=== PATIENT | female | born 1950 | race Caucasian/White ===

== ENCOUNTER 2019-10-13 08:03 | Outpatient (CLI) | payer OTHER, SELFPAY ==
--- NOTE | ~2019-10-13 | CT_ITS ---
EXAMINATION: CT lung screening DATE: 10/13/2019 10:02 INDICATION: Personal history of tobacco dependence, current smoker with 40 pack year history TECHNIQUE: Computed tomography (CT) of the chest was performed without intravenous contrast. The dose -length product (DLP) was 61.15 mGy-cm. Automated exposure control and iterative reconstruction techn Blendue were employed. COMPARISON: 10/21/2018 FINDINGS: There is severe emphysema. There is a 5 mm nodule in the medial aspect of the right lower l obe on image 59 which is new since the comparison examination. There is an unchanged small area of sc arring in the lingula. Previously described 1 to 2 mm nodule of the right upper lobe are unchanged an d most consistent with old granulomatous disease. There is no pleural effusion or pneumothorax. No pa thologically enlarged thoracic lymph nodes are identified. The heart size is normal. Stable fluid att enuation lesions of the liver measuring up to 1.2 cm are consistent with cysts. IMPRESSION: 1. Lung-RADS category 3: Probably benign. Followup with noncontrast low-dose chest CT in 6 months is recommended. Reviewed, dictated and finalized at location A. IMPRESSION: 1. Lung-RADS category 3: Probably benign. Followup with noncontrast low-dose ch est CT in 6 months is recommended.
[2019-10-13 09:00] VITALS: PULSE 60; O2SAT 95
[2019-10-13 09:05] VITALS: PULSE 100; O2SAT 85
[2019-10-13 09:08] VITALS: O2SAT 87
[2019-10-13 09:10] VITALS: O2SAT 90
[2019-10-13 09:20] VITALS: PULSE 69; O2SAT 94
--- NOTE | 2019-10-13 09:54 | HOMEO2EVAL ---
Home Oxygen Evaluation RC: Home Oxygen (O2) Evaluation Start: 10/13/19 09:49 Freq: Status: Active Protocol: RPE Activity Type Activity Date Activity User E-Sign Co-Sign Detail Recorded Client Recorded Date Recorded By Document 10/13/19 09:00 GEOVANNA [id number] 10/13/19 09:53 GEOVANNA Document 10/13/19 09:05 GEOVANNA [id number] 10/13/19 09:53 GEOVANNA Document 10/13/19 09:08 GEOVANNA [id number] 10/13/19 09:53 GEOVANNA Document 10/13/19 09:10 GEOVANNA [email or web address] 10/13/19 09:53 GEOVANNA Document 10/13/19 09:20 GEOVANNA [email or web address] 10/13/19 09:53 GEOVANNA 10/13/19 10/13/19 10/13/19 09:00 09:05 09:08 Home O2 Evaluation Test Phase Resting Exercise Exercise Oxygen Delivery Room Air Room Air Nasal Cannula Oxygen Flow Rate (L/min) 1 Pulse Oximetry (90-100 %) 95 85 L 87 L Pulse Rate (60-100 beats/min) 60 100 Activity Tolerance Fair Ambulation Distance (feet) 200 Home Oxygen Evaluation Comments Treatment Charges O2 Evaluation 10/13/19 10/13/19 09:10 09:20 Home O2 Evaluation Test Phase Exercise Resting Oxygen Delivery Nasal Cannula Room Air Oxygen Flow Rate (L/min) 2 Pulse Oximetry (90-100 %) 90 94 Pulse Rate (60-100 beats/min) 69 Activity Tolerance Ambulation Distance (feet) Home Oxygen Evaluation Comments PT REQUIRES 2L WITH ACTIVITY/ EXERTION Treatment Charges
--- NOTE | 2019-10-16 15:56 | WPDPFTINT ---
PFT Interpretation PFT Interpretation: DOS: 10/13/2019 REQUESTING: Dr Partida REASON FOR TESTING: Shortness of breath, tobacco dependence PULMONARY FUNCTION TESTS The test results are not reliable as the patient was not able to hold her breath long enough to complete DLCO. She was quite short of breath, although she did perform to the best of her ability. Spirometry: FEV1 is severely decreased 46%, 0.8 L. FVC is 75% predicted, 1.84 L , mildly reduced. FEV1% is reduced, consistent with airflow obstruction. There is no change with bronchodilator. Lung volumes: Severe increase in total lung capacity. TLC 167%, consistent with hyperinflation. Extremely severe increase in RV 305%. Increased airway resistance 828%. Diffusion: DLCO moderately decreased 45%. Flow volume loop: Scooping of the expiratory limb. IMPRESSION: Results are not reproducible however this test does confirm extremely severe obstructive ventilatory impairment, hyperinflation, air trapping, increased airway resistance and decreased diffusion. This is consistent with emphysema. Lack of response to bronchodilator should not preclude use if clinically indicated. Mami Partida MD
== END 2019-10-13 08:04 | disposition home or self-care (01) ==
PROVIDERS: PCP Family Medicine; Visit Provider Internal Medicine Critical Care Medicine
DX: J44.9 Chronic obstructive pulmonary disease, unspecified (principal); Z12.2 Encounter for screening for malignant neoplasm of respiratory organs; Z87.891 Personal history of nicotine dependence; R09.02 Hypoxemia
CPT/HCPCS: 94060; 94618; 94726; 94729; G0297

== ENCOUNTER → 2020-09-03 07:03 | Outpatient (CLI) | payer OTHER, SELFPAY ==
[2020-09-04 00:15] LABS: SARS-CoV-2 RNA PCR Negative
== END ==
PROVIDERS: PCP Family Medicine; Visit Provider Family Medicine
DX: Z01.812 Encounter for preprocedural laboratory examination (principal); Z20.822 Contact with and (suspected) exposure to COVID-19
CPT/HCPCS: C9803; U0003; U0005

== ENCOUNTER → 2020-09-24 06:55 | Outpatient (CLI) | payer OTHER, SELFPAY ==
[2020-09-24 22:40] LABS: SARS-CoV-2 RNA PCR Negative
== END ==
PROVIDERS: PCP Family Medicine; Visit Provider Family Medicine
DX: R68.89 Other general symptoms and signs (principal); Z20.822 Contact with and (suspected) exposure to COVID-19
CPT/HCPCS: C9803; U0003; U0005

== ENCOUNTER 2020-11-02 12:28 | Outpatient (CLI) | payer OTHER, SELFPAY ==
--- NOTE | ~2020-11-02 | CT_ITS ---
EXAMINATION:CT lung screening DATE: 11/02/2020 12:43 INDICATION: Personal history of tobacco dependence. Current smoker with 40 pack year history. TECHNIQUE: Computed tomography (CT) of the chest was performed without intravenous contrast. Automate d exposure control and iterative reconstruction technique were employed. The dose-length product (DLP ) was 57.59 mGy-cm. COMPARISON: Chest CT 10/13/2019 FINDINGS: There is severe emphysema. There is stable mild scarring at the lung apices. There is a 5 m m nodule in right lower lobe, new from 10/13/2019. There is a worsened 4 mm nodule in left upper lobe. There are multiple scattered stable pulmonary nodules measuring up to 4 mm. No pleural effusion. The heart size is normal. The central pulmonary arteries are enlarged, consistent with pulmonary arteria l hypertension. There are cysts in the liver measuring up to 1.5 cm. There is mild thoracic spondylos is. IMPRESSION: 1. Lung-RADS category 3: Probably benign. Further evaluation is recommended with noncontrast low-dose chest CT in 6 months. Reviewed, dictated and finalized at location B. IMPRESSION: 1. Lung-RADS category 3: Probably benign. Further evaluation is recommended wit h noncontrast low-dose chest CT in 6 months.
== END 2020-11-02 12:29 | disposition home or self-care (01) ==
PROVIDERS: PCP Family Medicine; Visit Provider Nurse Practitioner Family
DX: Z12.2 Encounter for screening for malignant neoplasm of respiratory organs (principal); Z87.891 Personal history of nicotine dependence
CPT/HCPCS: 71271

== ENCOUNTER → 2020-11-18 06:47 | Outpatient (CLI) | payer OTHER, SELFPAY ==
[2020-11-18 16:11] LABS: SARS-CoV-2 RNA PCR Negative
== END ==
PROVIDERS: PCP Family Medicine; Visit Provider Physician Assistant
DX: Z20.822 Contact with and (suspected) exposure to COVID-19 (principal)
CPT/HCPCS: C9803; U0003; U0005

== ENCOUNTER 2021-05-22 12:59 | Outpatient (CLI) | payer OTHER, SELFPAY ==
--- NOTE | ~2021-05-22 | CT_ITS ---
EXAMINATION:CT diagnostic chest wo con DATE: 05/22/2021 14:15 INDICATION: Solitary pulmonary nodule. TECHNIQUE: Computed tomography (CT) of the chest was performed without intravenous contrast. Automate d exposure control and iterative reconstruction technique were employed. The dose-length product (DLP ) was 58.01 mGy-cm. COMPARISON: Chest CT 11/02/2020, 10/13/2019 FINDINGS: There is mild scarring at the lung apices. There is severe emphysema. There is a new 12 mm nodule in left upper lobe. There is mild atelectasis in lingula without change. There is a 4 mm nodul e in right lower lobe with decrease in size from 5 mm. Again seen are 3 mm and 4 mm nodules in right lower lobe. No pleural effusion. The heart size is normal. No pericardial effusion. The main pulmonar y artery is enlarged, consistent with pulmonary arterial hypertension. There is a small sliding hiata l hernia. There are cysts in the liver measuring up to 1.4 cm. There is mild thoracic spondylosis. IMPRESSION: 1. New 12 mm nodule in left lung upper lobe, which may be infection or primary bronchogenic carcinoma . Noncontrast low-dose chest CT is recommended in 3 months. Given her home oxygen use, she would like ly not be a percutaneous biopsy candidate. Reviewed, dictated and finalized at location A. TRIC DETECTOR OPERATOR IMPRESSION: 1. New 12 mm nodule in left lung upper lobe, which may be infection or primary bronchogenic carcinoma. Noncontrast low-dose chest CT is recommended in 3 month s. Given her home oxygen use, she would likely not be a percutaneous biopsy can didate.
--- NOTE | 2021-05-22 13:10 | ECHO_ITS ---
Patient Info Name: Hazel Owens Age: 71 years : 1950 Gender: Female Ht: 60 in Wt: 110 lbs BSA: 1.46 m2 HR: 78 bpm BP: 131 / 65 mmHg Technical Quality: Fair Exam Date: 05/22/2021 1:33 PM Exam Location: [facility] Patient Status: Outpatient Admit Date: 05/22/2021 Staff Ordering Physician: Mami Partida MD Bellhop Captain: Joaquina Hunt RDCS Attending Provider: Mami Partida MD Referring Physician: Jaquan SHORE; Exam Type: CA echo doppler color flow Study Info Indications - pulmonary hypertension Complete two-dimensional, color flow and Doppler transthoracic echocardiogram is performed. Summary 1. Complete two-dimensional, color flow and Doppler transthoracic echocardiogram is performed. 2. Left ventricular chamber dimension is normal. 3. Left ventricular systolic function is normal, estimated at 65-70%. 4. The left ventricular diastolic function is grade I diastolic dysfunction. 5. E/e' 9 is minimally elevated. 6. There is mild mitral valve regurgitation. 7. There is trace tricuspid valve regurgitation. 8. Mild pulmonary hypertension, estimated pulmonary arterial systolic pressure is 45 mmHg. 9. There is trace pulmonic regurgitation. 10. Dilated inferior vena cava with >50% collapse upon inspiration consistent with elevated right atrial pressure, 10 mmHg. Left Ventricle E/e' 9 is minimally elevated. Left ventricular chamber dimension is normal. Left ventricular systolic function is normal, estimated at 65-70%. The left ventricular diastolic function is grade I diastolic dysfunction. Right Ventricle Right ventricular chamber dimension is normal. Right ventricular systolic function is normal. Left Atria Left atrial chamber dimension is normal. Right Atria Right atrial chamber dimension is normal. Aortic Valve The aortic valve is trileaflet. There is no aortic valve stenosis. There is no aortic valve regurgitation. Pulmonic Valve There is trace pulmonic regurgitation. Mitral Valve There is no mitral valve stenosis. There is mild mitral valve regurgitation. Tricuspid Valve There is trace tricuspid valve regurgitation. Mild pulmonary hypertension, estimated pulmonary arterial systolic pressure is 45 mmHg. Pericardium/Pleural There is no pericardial effusion. Inferior Vena Cava Dilated inferior vena cava with >50% collapse upon inspiration consistent with elevated right atrial pressure, 10 mmHg. Aorta The aortic root size at the sinus of Valsalva is normal. Left Ventricular Outflow Tract Name Value Normal LVOT 2D LVOT Diameter 2.0 cm LVOT Doppler LVOT Peak Gradient 5 mmHg LVOT Mean Gradient 3 mmHg LVOT VTI 22 cm LVOT VTI/AV VTI Ratio 0.9 LVOT Stroke Volume 70 ml LVOT CO 14.8 l/min LVOT CI 10.2 l/min/m2 Pulmonic Valve Name V
== END 2021-05-22 13:00 | disposition home or self-care (01) ==
PROVIDERS: PCP Family Medicine; Visit Provider Internal Medicine Critical Care Medicine
DX: R91.1 Solitary pulmonary nodule (principal); I27.20 Pulmonary hypertension, unspecified; I34.0 Nonrheumatic mitral (valve) insufficiency
CPT/HCPCS: 71250; 93306

== ENCOUNTER → 2021-07-18 11:08 | Outpatient (CLI) | payer OTHER, SELFPAY ==
--- NOTE | ~2021-07-18 | MM_ITS ---
EXAMINATION: MM screening [place] BI w yolanda HISTORY: Screening mammogram TECHNIQUE: Craniocaudal and mediolateral oblique 3-D tomosynthesis images were obtained and synthetic 2-D images were generated. CAD analysis was submitted and interpreted. COMPARISON: 05/07/2017 BREAST PARENCHYMAL COMPOSITION: There are scattered areas of fibroglandular density. FINDINGS: There is no evidence of suspicious mass, calcification, or architectural distortion to sugg est malignancy in either breast. There has been no suspicious interval change. IMPRESSION: 1. No mammographic evidence of malignancy. 2. Recommend routine screening mammography in one year. BI-RADS Category 1: Negative Reviewed, dictated and finalized at location A. LAYER
--- NOTE | ~2021-07-18 | DEXA_ITS ---
Bone Density Report Name: WILFRED ROBERTSON Age: 71 Sex: Female Ethnicity: White Date of : 1950 Indication: postmenopausal; screening for osteoporosis; asthma or emphysema; hysterectomy; Referring Provider: MATTHEW, JUAN [place] Study: Bone densitometry was performed. Exam Date: July 18, 2021 Accession number: [id number] Bone Density: Region BMD T-score Z-score Classification AP Spine (L1-L4) 0.812 -2.1 -0.1 Osteopenia Femoral Neck (Left) 0.455 -3.6 -1.8 Osteoporosis Total Hip (Left) 0.560 -3.1 -1.7 Osteoporosis Femoral Neck (Right) 0.413 -3.9 -2.2 Osteoporosis Total Hip (Right) 0.544 -3.3 -1.8 Osteoporosis Total Hip Mean 0.552 -3.2 -1.8 Osteoporosis World Health Organization criteria for BMD impression classify patients as: Normal (T-score at or above -1.0), Osteopenia (T-score between -1.0 and -2.5), or Osteoporosis (T-score at or below -2.5). 10-year Fracture Risk: FRAX not reported because: Some T-score for Spine Total or Hip Total or Femoral Neck at or below -2.5 Clinical Information Provided by Patient: Smokes Has used the following medications: Vitamin D Has the following medical conditions: Asthma or Emphysema, Hysterectomy Patient maximum height was 60.13 Menopause Age: 42 No regular weight bearing exercise Drinks caffeinated beverages Onset of menses at age 13 Number of children 2 Impression: The patient has osteoporosis, based on the Right Femoral Neck T-score. The patient has risk factors, including: smoking. Discussion: HIGH RISK OF FRACTURE. BONE DENSITY IS UNDESIRABLY LOW AT ONE OR MORE SKELETAL SITES, CONSISTENT WITH OSTEOPOROSIS. ALSO, BONE DENSITY IS LOWER THAN EXPECTED FOR AGE AND SEX AT ONE OR MORE SKELETAL SITES; RECOMMEND A DILIGENT SEARCH FOR SECONDARY CAUSES OF BONE LOSS. This patient's lowest T-score meets the World Health Organization's (WHO) criteria for osteoporosis at one or more sites (T-score -2.5 or below). In untreated patients, the risk of osteoporotic fracture increases approximately two-fold for each 1.0 SD decrease in T-score. Low bone density is not the only risk factor for fracture; also consider factors such as patient's age, frailty or poor health, risk of falling, risk of injury, previous osteoporotic fracture, family history of osteoporosis, cigarette smoking, low body weight, etc. Not everyone with low bone mineral density has osteoporosis; osteomalacia and other metabolic bone disorders should also be considered. Patients who have osteoporosis should be evaluated for specific diseases and conditions (secondary causes) that may cause or contribute to bone loss. The [place] [employer] Endocrinologists (AACE) and National Osteoporosis Foundation (NOF) recommend pharmacologic intervention for all postmenopausal women whose T-score is in this ra
== END ==
PROVIDERS: PCP Family Medicine; Visit Provider Physician Assistant
DX: Z12.31 Encounter for screening mammogram for malignant neoplasm of breast (principal); Z78.0 Asymptomatic menopausal state; M85.88 Other specified disorders of bone density and structure, other site; M81.0 Age-related osteoporosis without current pathological fracture
CPT/HCPCS: 77063; 77067; 77080

== ENCOUNTER 2021-08-24 13:34 | Outpatient (CLI) | payer OTHER, SELFPAY ==
--- NOTE | ~2021-08-24 | CT_ITS ---
EXAMINATION:CT diagnostic chest wo con DATE: 08/24/2021 13:52 INDICATION: Solitary pulmonary nodule. TECHNIQUE: Computed tomography (CT) of the chest was performed without intravenous contrast. Automate d exposure control and iterative reconstruction technique were employed. The dose-length product (DLP ) was 57.59 mGy-cm. COMPARISON: Chest CT 05/22/2021, 11/02/2020 FINDINGS: There is mild scarring at the lung apices. There is severe emphysema. There is an 8 mm nodu le in left upper lobe, decreased from 12 mm on 05/22/2021. There is mild atelectasis in lingula. Ther e are a few scattered nodules in the lungs measuring up to 5 mm without change. No pleural effusion. The heart size is normal. No pericardial effusion. There are no pathologically enlarged lymph nodes. The central pulmonary arteries are enlarged, consistent with pulmonary arterial hypertension. There a re cysts in the liver measuring up to 1.6 cm. There is mild thoracic spondylosis. IMPRESSION: 1. 8 mm nodule in left upper lobe with interval improvement, likely benign. 2. Severe emphysema. Reviewed, dictated and finalized at location A. NER MACHINE TENDER
== END 2021-08-24 13:35 | disposition home or self-care (01) ==
PROVIDERS: PCP Family Medicine; Visit Provider Physician Assistant
DX: R91.1 Solitary pulmonary nodule (principal); K76.89 Other specified diseases of liver; J43.9 Emphysema, unspecified; M47.814 Spondylosis without myelopathy or radiculopathy, thoracic region
CPT/HCPCS: 71250

== ENCOUNTER 2021-09-04 00:25 | Day surgery (SDC) | payer OTHER, SELFPAY ==
[2021-08-24 14:16] VITALS: BMI 40.0
--- NOTE | 2021-09-01 13:44 | PM.HPGS ---
History of Present Illness History of Present Illness Consent: Risks, benefits, and alternatives have been discussed and questions answered. Patient agrees to proceed with procedure. Chief complaint: hx of colon polyps Narrative: Hazel Owens is a 71 year old female referred for colon cancer screening. She had 5 tubular adenomas removed about 4 years ago Review of Systems Review of Systems: All systems reviewed & are unremarkable except as noted in HPI and below PMFSH Past Medical History Medical History Chronic respiratory failure with hypoxia Colon polyps COPD (chronic obstructive pulmonary disease) Hypoxemia Macular degeneration Raynaud disease Tobacco dependence Uterine fibroid Surgical History Surgical History S/P hysterectomy with oophorectomy Status post bilateral cataract extraction Family History Family History Father Diabetes mellitus Hypertension Malignant neoplasm of prostate Family history of malignant neoplasm of kidney Mother Diabetes mellitus Hypertension Family history of cardiovascular disease Social History Social History Social History: Smoking packs per day: 0.5 Smoking cigarettes per day: 10.0 Years smoked: 40 Smoking pack-years: 20.00 Smoking status: Current every day smoker Tobacco type: cigarettes Second hand tobacco smoke exposure: Yes Additional smoking assessment comments: still smoking also vaping Alcohol intake: never Substance use: never Substance use type: does not use Living arrangements: with family Gender identity (if verbalized by the patient): Female Sexual Orientation (if Verbalized by the Patient): Straight or Heterosexual Spiritual care concerns: No Meds Home Medications and Allergies Home Medications Medication Instructions Recorded Confirmed Type fluticasone fur. 100 mcg-umeclid 1 inhalation INHALATION DAILY #28 07/08/19 08/24/21 Rx 62.5 mcg-vilant 25 mcg each inhalat.powder albuterol sulfate 0.63 mg/3 mL 0.63 mg INHALATION Q6H 11/05/19 08/24/21 History solution for nebulization cholecalciferol (vitamin D3) 1,250 50,000 unit PO WEEKLY #12 cap 04/19/21 08/24/21 Rx mcg (50,000 unit) capsule alendronate 70 mg tablet 70 mg PO WEEKLY #14 tablet 07/24/21 08/24/21 Rx Allergies Allergy/AdvReac Type Severity Reaction Status Date / Time Androgenic Anabolic Steroid AdvReac Severe tremor Verified 09/04/21 08:15 Exam Resp: Auscultation: clear to auscultation bilaterally Cardio: Rate: regular rate Rhythm: regular rhythm GI: GI Palp: Yes Soft to palpation and No Tenderness to palpation present (GI) Assessment and Plan Assessment and plan (1) Screening for colon cancer: Code(s): Z12.11 - Encounter for screening for malignant neoplasm of colon Status: Acute Assessment and Plan: Colonoscopy with possible biopsy or polypectomy or cautery or injection of substances.
[2021-09-04 08:16] VITALS: BP 137/64; PULSE 109; RESP 18; TEMP 37.1; O2SAT 99; BMI 21.4
--- NOTE | 2021-09-04 08:26 | WPDANESEPPF ---
Anes - Initial Pre Proc Eval Procedure: Operation Date: 09/04/21 09:00 Proposed Procedures p Screening Colonoscopy - Wilner Espinal MD Date/Time: 09/04/21 08:26 Surgeon: Wilner Espinal MD Pre Op Diagnosis: hx of colon polyps Patient Data Age: 71 Gender: F Height: 1.52 m Weight: 49.8 kg Last Vital Signs Temp 37.1 C 09/04/21 08:16 Pulse 109 H 09/04/21 08:16 Resp 18 09/04/21 08:16 BP 137/64 09/04/21 08:16 Pulse Ox 99 09/04/21 08:16 Allergies Allergy/AdvReac Type Severity Reaction Status Date / Time Androgenic Anabolic Steroid AdvReac Severe tremor Verified 09/04/21 08:15 Home Medications Medication Instructions Recorded Confirmed Type fluticasone fur. 100 mcg-umeclid 1 inhalation INHALATION DAILY #28 07/08/19 08/24/21 Rx 62.5 mcg-vilant 25 mcg each inhalat.powder albuterol sulfate 0.63 mg/3 mL 0.63 mg INHALATION Q6H 11/05/19 08/24/21 History solution for nebulization cholecalciferol (vitamin D3) 1,250 50,000 unit PO WEEKLY #12 cap 04/19/21 08/24/21 Rx mcg (50,000 unit) capsule alendronate 70 mg tablet 70 mg PO WEEKLY #14 tablet 07/24/21 08/24/21 Rx Patient hx anesthesia problems: none Family hx anesthesia problems: none Results Review: All pre-operative results and documents have been reviewed as part of the pre-operative evaluation. [facility] Past Medical History Medical History Chronic respiratory failure with hypoxia Colon polyps COPD (chronic obstructive pulmonary disease) Hypoxemia Macular degeneration Raynaud disease Tobacco dependence Uterine fibroid Surgical History Surgical History S/P hysterectomy with oophorectomy Status post bilateral cataract extraction Family History Family History Father Diabetes mellitus Hypertension Malignant neoplasm of prostate Family history of malignant neoplasm of kidney Mother Diabetes mellitus Hypertension Family history of cardiovascular disease Social History Social History Social History: Smoking packs per day: 0.5 Smoking cigarettes per day: 10.0 Years smoked: 40 Smoking pack-years: 20.00 Smoking status: Current every day smoker Tobacco type: cigarettes Second hand tobacco smoke exposure: Yes Additional smoking assessment comments: still smoking also vaping Alcohol intake: never Substance use: never Substance use type: does not use Living arrangements: with family Gender identity (if verbalized by the patient): Female Sexual Orientation (if Verbalized by the Patient): Straight or Heterosexual Spiritual care concerns: No Anes - Eval Final PreProcedure Day of Procedure 09/04/21 08:26 Patient weight: normal Heart: regular rate and rhythm Lungs: clear to auscultation Airway: Mallampati scale class II Neurological: alert and oriented Last oral intake: >/= 8 hours ASA classification: III Emergent: no Anesthetic plan: proceed Anesthesia type and monitoring: general GIVS and standard monitoring Results Review: All pre-operative results and documents have been reviewed as part of the pre-operative evaluation. Informed Consent: The patient's anesthetic plan and its attendant risks and benefits were discussed with the patient/family/POA. Questions were solicited and answers provided to the satisfaction of the patient/family/POA.
[2021-09-04] MEDS: LACTATED RINGERS 1,000 ML 150 ML IV CONT (08:28)
[2021-09-04 09:29] VITALS: BP 105/49; PULSE 95; RESP 27; O2SAT 100
[2021-09-04 09:39] VITALS: BP 99/71; PULSE 76; RESP 27; O2SAT 100
[2021-09-04 09:49] VITALS: BP 100/78; PULSE 72; RESP 24; O2SAT 100
== END 2021-09-04 10:01 | disposition home or self-care (01) ==
PROVIDERS: PCP Family Medicine; Visit Provider Internal Medicine Gastroenterology
PROC: 0DJD8ZZ Inspection of Lower Intestinal Tract, Via Natural or Artificial Opening Endoscopic (ICD-10-PCS; CPT 45378; principal; 2021-09-04 09:00)
DX: Z12.11 Encounter for screening for malignant neoplasm of colon (principal); D12.0 Benign neoplasm of cecum; D12.4 Benign neoplasm of descending colon; D12.5 Benign neoplasm of sigmoid colon; K57.30 Diverticulosis of large intestine without perforation or abscess without bleeding; Z79.51 Long term (current) use of inhaled steroids; J44.9 Chronic obstructive pulmonary disease, unspecified; J96.11 Chronic respiratory failure with hypoxia; H35.30 Unspecified macular degeneration; I73.00 Raynaud's syndrome without gangrene; F17.210 Nicotine dependence, cigarettes, uncomplicated
CPT/HCPCS: 45385; 45380; 45381; 88305; J2001; J2704; J7120

== ENCOUNTER → 2022-04-17 10:57 | Outpatient (CLI) | payer OTHER, SELFPAY ==
--- NOTE | ~2022-04-17 | XR_ITS ---
EXAMINATION: HAND-STEFANIE ARTHRITIS 3+VIEWS DATE: 04/17/2022 11:17 INDICATION: Arthritis pain at the bilateral hands. TECHNIQUE: Posteroanterior, lateral, and oblique views of the left and of the right hands as well as a ballcatchers view of both hands were obtained. COMPARISON: None. FINDINGS: Bone alignment is normal at the bilateral hands. No fractures. Minimal to mild osteoarthritis at the bilateral triscaphe, first carpometacarpal and several interphalangeal joints characterized by nonuni form joint space narrowing and/or tiny marginal osteophytes. Subarticular cystic change at the distal pole of the left scaphoid. No erosions to suggest an inflammatory arthritis. Soft tissues are unrema rkable. IMPRESSION: 1. 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 No erosions to suggest inflam matory arthritis. Reviewed, dictated and finalized at location A. IMPRESSION: 1. 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 No eros ions to suggest inflammatory arthritis.
== END ==
PROVIDERS: PCP Family Medicine; Visit Provider Internal Medicine
DX: M19.041 Primary osteoarthritis, right hand (principal); M19.042 Primary osteoarthritis, left hand
CPT/HCPCS: 73130

== ENCOUNTER 2022-12-12 10:14 | Outpatient (CLI) | payer OTHER, SELFPAY ==
--- NOTE | ~2022-12-12 | CT_ITS ---
EXAMINATION: CT lung screening DATE: 12/12/2022 10:46 INDICATION: History of tobacco dependence. TECHNIQUE: Computed tomography (CT) of the chest was performed without intravenous contrast. The dose -length product was 61.91 mGy-cm. Automated exposure control and iterative reconstruction technique w ere employed. COMPARISON: Comparison to multiple prior studies sequentially, with oldest reviewed study dated 11/02. FINDINGS: Continued decrease in size of left upper lobe nodule measuring 9 x 7 mm compared with 10 x 8 mm on prior examination. There is severe emphysema. There is a new 7 mm right upper lobe nodule, im age 52. There are bullous changes in the left lower lobe. There are additional smaller bilateral pulm onary nodules measuring 3 mm or less. No acute osseous abnormality. No thoracic lymphadenopathy. No s ignificant pleural or pericardial effusion. There are small cysts of the liver. There is mild atheros clerosis of the aorta. IMPRESSION: 1. Lung Rads category 4A, suspicious recommends follow-up 3 month interval low dose CT chest. Alterna tively Pet/CT scan may be performed. Reviewed, dictated and finalized at location [] IMPRESSION: 1. Lung Rads category 4A, suspicious recommends follow-up 3 month interval low dose CT chest. Alternatively Pet/CT scan may be performed.
== END 2022-12-12 10:15 | disposition home or self-care (01) ==
PROVIDERS: PCP Family Medicine; Visit Provider Internal Medicine Critical Care Medicine
DX: Z12.2 Encounter for screening for malignant neoplasm of respiratory organs (principal); F17.210 Nicotine dependence, cigarettes, uncomplicated; R91.8 Other nonspecific abnormal finding of lung field
CPT/HCPCS: 71271

== ENCOUNTER 2023-01-03 08:51 | Outpatient (CLI) | payer OTHER, SELFPAY ==
--- NOTE | ~2023-01-03 | PE_ITS ---
EXAMINATION: PET skull to mid thigh DATE: 01/03/2023 11:18 INDICATION: Lung nodule TECHNIQUE: Blood glucose level was 110 mg/dL. 9.2 mCi of 18-fluorodeoxyglucose (18-FDG) was administe red i.v. Low dose computed tomography (CT) images were acquired from the base of the brain to the pro ximal thighs for attenuation correction and anatomic localization. Positron emission tomography (PET) images were acquired in the same distribution beginning 46 minutes after injection. The dose-length product (DLP) was 417.28 mGy-cm. COMPARISON: CT, 12/12/2022, 05/22/2021 FINDINGS: Head/neck: No abnormal FDG uptake is identified. Chest: There is severe emphysema. There is a 6 mm nodule of the right upper lobe with low-level FDG u ptake and SUV max of 1.7. There is an 8 mm nodule of the left lung apex with low level FDG uptake and SUV max of 1.5. There is mild atelectasis of the lingula. No pleural effusion or pneumothorax. No pa thologically enlarged thoracic lymph nodes are identified. The heart size is normal. Abdomen/pelvis/proximal thighs: Physiologic FDG activity is present in the bowel and urinary tract. N o abnormal FDG uptake is identified. There is a 2.1 cm cyst of the liver. The spleen, gallbladder, an d adrenal glands are normal. There is partial fatty replacement of the pancreas. No pathologically en larged abdominal or pelvic lymph nodes are identified. No free intraperitoneal gas or evidence of bow el obstruction. Colonic diverticulosis is present without evidence of diverticulitis. Musculoskeletal: No abnormal FDG uptake is identified. IMPRESSION: 1. 6 mm right upper lobe nodule with low-level FDG uptake concerning for primary bronchogenic carcino ma given detectable FDG uptake despite its small size. 2. Chronic left upper lobe nodule with low-level FDG uptake but decreased in size compared to prior e xaminations, likely benign. Reviewed, dictated and finalized at location L. IMPRESSION: 1. 6 mm right upper lobe nodule with low-level FDG uptake concerning for primar y bronchogenic carcinoma given detectable FDG uptake despite its small size. 2. Chronic left upper lobe nodule with low-level FDG uptake but decreased in si ze compared to prior examinations, likely benign.
[2023-01-03 09:41] LABS: Glucose Point of Care 110 mg/dl (65-105)
== END 2023-01-03 08:52 | disposition home or self-care (01) ==
PROVIDERS: PCP Family Medicine; Visit Provider Internal Medicine Critical Care Medicine
DX: R91.1 Solitary pulmonary nodule (principal)
CPT/HCPCS: 78815; A9552

== ENCOUNTER 2023-01-09 17:17 | Inpatient (IN) | payer OTHER, SELFPAY ==
[2023-01-09] VITALS (35 sets, daily range): BP systolic 101–165; BP diastolic 38–118; PULSE 63–131; RESP 14–33; TEMP 36.1–36.6; O2SAT 96–100; BMI 20.9
--- NOTE | ~2023-01-09 | XR_ITS ---
EXAMINATION: XR chest 2V Exam Date/Time: 01/09/2023 17:30 CDT HISTORY: SOB X 3 days, decreased strength, hx copd Comparison: 04/16/2017. RESULT: Lines, tubes, and devices: A stent or portion of a catheter projects over the upper abdomen in the l ateral view. Lungs and pleura: Diffuse reticular opacities. Hyperinflation. Lingular scar/atelectasis No focal co nsolidation, pneumothorax or pleural effusion. Cardiomediastinal silhouette: Stable. Other: No acute osseous or upper abdominal finding. IMPRESSION: Interstitial pulmonary edema. Emphysematous change. Reviewed, dictated and finalized at location K.
--- NOTE | 2023-01-09 17:21 | ECG_ITS ---
Measurements Intervals [place] Rate: 118 P: 76 CA: 112 QRS: 85 QRSD: 90 T: 48 QT: 307 QTc: 431 Interpretive Statements SINUS TACHYCARDIA WITH SHORT CA INTERVAL INCOMPLETE RIGHT BUNDLE BRANCH BLOCK NONSPECIFIC ST & T-WAVE ABNORMALITY- INFERIOR LEADS BASELINE ARTIFACT- I, II, III, AVR, AVL, AVF, V1-V6 ABNORMAL ECG NO PREVIOUS ECG AVAILABLE FOR COMPARISON Electronically Signed On 01-09-2023 21:00:27 CDT by José Miguel Sullivan D.O.
[2023-01-09 18:04] LABS: Basophils Percent Auto 0.4 % (0.2-1.2); Eosinophils Absolute Auto 0.1 K/mm3 (0-0.3); Eosinophils Percent Auto 1.1 % (0-4.4); Hematocrit 35.8 % (37.0-47.0); Hemoglobin 10.3 g/dL (12.0-15.0); Immature Granulocyte Absolute 0.03 K/mm3 (0.00-0.031); Immature Granulocyte Percent A 0.4 % (0-0.5); Lymphocytes Absolute Auto 2.01 K/mm3 (0.9-3.2); Lymphocytes Percent Auto 27.9 % (18.3-44.2); Mean Corpuscular HGB Conc 28.8 g/dl (32-36); Mean Corpuscular Hemoglobin 29.7 pg (26-34); Mean Corpuscular Volume 103.2 fl (80-100); Mean Platelet Volume 9.6 fl (7.4-10.4); Monocytes Absolute Auto 0.7 K/mm3 (0.1-0.6); Monocytes Percent Auto 9.4 % (2.6-8.5); Neutrophils Absolute Auto 4.4 K/mm3 (1.3-6.7); Neutrophils Percent Auto 60.8 % (45.5-73.1); Platelet Count Result 227 k/mm3 (150-375); Red Blood Count 3.47 M/mm3 (4.2-5.4); Red Cell Distribution Width 12.8 % (11.5-14.5); White Blood Count 7.2 K/mm3 (4.5-10.0)
[2023-01-09 18:17] LABS: Alanine Aminotransferase 20 U/L (6-35); Albumin Level 4.1 g/dL (3.5-5.1); Alkaline Phosphatase 54 U/L (38-126); Aspartate Amino Transferase 35 U/L (14-36); Bilirubin,Total 0.5 mg/dL (0.2-1.3); Blood Urea Nitrogen 25 mg/dL (7-17); Calcium 9.3 mg/dL (8.4-10.2); Carbon Dioxide > 40 mmol/L (22-30); Chloride 91 mmol/L (98-107); Estimated CRCL calculation 53 ml/min; Estimated Glomerular Filt Rate > 60; Glucose 130 mg/dL (65-110); Potassium 3.8 mmol/L (3.4-5.0); Sodium 142 mmol/L (137-145)
[2023-01-09 18:41] LABS: Hypochromasia 1+ (NORMAL); Platelet Estimate Adequate (Adequate); Schistocytes None Seen (NORMAL)
[2023-01-09] MEDS: LORazepam INJ (*CRX) 2 MG/ML VIAL 0.5 MG IV PUSH (19:33)
[2023-01-09 19:50] LABS: Appearance Urine Cloudy (Clear); Bacteria Urine Rare /hpf; Bilirubin Urine Negative (Negative); Blood Urine 2+ (Negative); Color Urine Yellow (Yellow); Glucose Urine UA Negative (Negative); Ketones Urine Negative (Negative); Leukocyte Esterase Ur Negative LEU/UL (Negative); Nitrate Urine Negative (Negative); Non Pathogenic Casts 0-2; Protein Urine 2+ mg/dL (Negative); RBC Urine 0-2 /hpf (0-2); Specific Grav Ur 1.011 (1.001-1.035); Squamous Epithelial Cell Urine Moderate /hpf (Few); Urobilinogen Urine 0.2 mg/dL (<2.0); WBC Urine 0-5 /hpf
--- NOTE | 2023-01-09 19:52 | ED.GENADULT ---
HPI - General Adult General Chief complaint: Shortness of Breath/Dyspnea Stated complaint: SOB Time Seen by Provider: 01/09/23 19:05 History of Present Illness HPI narrative: Patient is a 72-year-old female who presents to Emergency Department with a chief complaint of shortness of breath. Patient reports that she has history of COPD and reports that she still smokes a few cigarettes a day patient states that she been getting more more short of breath and also has noticed that she been little shaky. Patient reports she has had a nonproductive cough reports no prior history of cardiac disease reports no prior history of congestive heart failure. Related Data Allergies Allergy/AdvReac Type Severity Reaction Status Date / Time Androgenic Anabolic Steroid AdvReac Severe tremor Verified 01/09/23 17:23 Review of Systems Review of Systems: A 10 system review of systems was completed on the patient and is negative except for what is stated in the HPI. Nursing and ancillary documentation was reviewed. [facility] Past Medical History Medical History GLO positive Chronic respiratory failure with hypoxia Colon polyps COPD (chronic obstructive pulmonary disease) Emphysema lung Encounter for medication management Generalized osteoarthritis of multiple sites Hypoxemia Macular degeneration Pulmonary hypertension Pulmonary hypertension Raynaud disease Raynaud phenomenon Tobacco dependence Uterine fibroid Surgical History Surgical History S/P hysterectomy with oophorectomy Status post bilateral cataract extraction Family History Family History Father Diabetes mellitus Hypertension Malignant neoplasm of prostate Family history of malignant neoplasm of kidney Mother Diabetes mellitus Hypertension Family history of cardiovascular disease Social History Social History Social History: Smoking packs per day: 0.5 Smoking cigarettes per day: 10.0 Years smoked: 40 Smoking pack-years: 20.00 Smoking status: Current every day smoker Tobacco type: cigarettes Second hand tobacco smoke exposure: Yes Alcohol intake: never Substance use: never Substance use type: does not use Lack of Transportation: No Lack of Food: Never True Current Housing: I Have Housing Concerned About Future Housing: No Difficulty Paying Gas/Electric Bills: No Difficulty Paying for Meds: No Currently Unemployed: YES Education: Decline to Answer Difficulty w/ Childcare or Family Care: No Living arrangements: with family Occupation/Education: retired Gender identity (if verbalized by the patient): Female Sexual Orientation (if Verbalized by the Patient): Straight or Heterosexual Spiritual care concerns: No Exam Narrative: GENERAL: Thin-appearing, well-nourished, and in no acute distress. HEAD: Normocephalic, atraumatic. EYES: PERRLA and EOMI. ENT: Nares clear, no rhinorrhea or epistaxis. Mucous membranes moist. NECK: Supple. CHEST: Faint scattered wheezes to auscultation. No respiratory distress. HEART: Tachycardic rate and rhythm. No murmur heard. Normal peripheral pulses. ABDOMEN: Soft, nontender, nondistended, normal active bowel sounds. EXTREMITIES: Normal range of motion. No edema. SKIN: Warm, dry, no rash. NEURO: No focal deficits. Alert and oriented x3. PSYCH: Normal mood and affect. Course Vital Signs Vital signs: Vital Signs Temperature 36.6 C 01/09/23 17:15 Pulse Rate 125 H 01/09/23 17:15 Respiratory Rate 22 H 01/09/23 17:15 Blood Pressure 153/118 H 01/09/23 17:15 Oxygen Delivery Nasal Cannula 01/09/23 17:15 Oxygen Flow Rate 4 01/09/23 17:15 Temperature 36.6 C 01/09/23 17:15 Pulse Rate 105 H 01/09/23
[2023-01-09 19:55] LABS: Lactic Acid Reflex 1.2 mmol/L (0.7-2.0)
[2023-01-09 19:55] LABS: NT Pro B Type Natriuretic Pept 491 pg/mL (19.9-100); Troponin I 0.018 ng/mL (0.000-0.034)
[2023-01-09] MEDS: methylPREDNISolone SOD SUCC 125 MG VIAL IV PUSH (20:03)
[2023-01-09 20:05] LABS: Add Urine Microscopic? YES
[2023-01-09] MEDS: IPRATROPIUM BR 0.02% INH SOLN 0.5 MG/2.5 ML VIAL INHALATION (20:08)
[2023-01-09] MEDS: ALBUTEROL SULFATE NEB 2.5 MG/3 ML INH INHALATION (20:09)
[2023-01-09 20:13] LABS: Alveolar/Arterial O2 Gradient 20.4 mmHg; Base Excess ABG 15.3 mEq/l (+/-2.0); Fractional Inspired Oxygen 40 %; HCO3 ABG 45.4 mEq/l (22.0-26.0); Oxygen Content ABG 17.2 %vol (16.0-22.0); Oxygen Saturation ABG 98.8 % (95.0-100.0); Oxyhemoglobin 97.4 % THb (90.0-100.0); PO2 ABG 160.5 mmHg (80.0-100.0); PO2 FiO2 Ratio Arterial Blood 4.01 %; Total Hemoglobin 12.3 g/dL (12.0-18.0); pH ABG 7.317 (7.350-7.450)
[2023-01-09 20:15] LABS: Device NASAL CANNULA; Modified Allen's Test Pass; PCO2 ABG 90.7 mmHg (35.0-45.0); Site Drawn RIGHT RADIAL
[2023-01-09] MEDS: FUROSEMIDE INJ 40 MG/4 ML VIAL 20 MG IV PUSH (20:38)
--- NOTE | 2023-01-09 21:44 | ADMGEN ---
This patient, Hazel Owens, was admitted to IMU Room 212-01. Patient/family oriented to hospital policies and general routines including ID bracelet, bed and alarms, visiting hours, pain management, procedures, bathroom and other care routines, personal items, smoking policy, room service/diet, and visiting hours. Information on how to activate the Rapid Response Team has been discussed. Patient/Family are encouraged to report perceived risks to care and to ask questions if they do not understand what they are told or what they should do.
[2023-01-09 23:57] LABS: Troponin I 0.028 ng/mL (0.000-0.034)
[2023-01-10] VITALS (32 sets, daily range): BP systolic 114–142; BP diastolic 45–68; PULSE 65–117; RESP 18–22; TEMP 35.7–36.4; O2SAT 95–100; BMI 20.9
--- NOTE | 2023-01-10 | PM.IMHP ---
H&P: HPI History of Present Illness Date/Time: 01/09/23 23:00 Chief Complaint: Worsening shortness of breaths. Narrative: Patient is a 72-year-old female with a history of chronic active smoking, COPD who presents to Emergency Department with a chief complaint of shortness of breath.? Her the time of my evaluation, the patient is breathing on a CPAP machine. History is gathered from chart review and ED notes. Patient reports that she has history of COPD and reports that she still smokes a few cigarettes a day patient states that she been getting more more short of breath and also has noticed that she been little shaky.? Patient reports she has had a nonproductive cough reports no prior history of cardiac disease reports no prior history of congestive heart failure. Emergency department the patient had a temperature of 36.6? C, pulse rate 125, respiration 22, blood pressure 153/118, O2 saturation 98% on 4 L. her CBC shows a WBC of 7.2, hemoglobin 10.3, hematocrit 35.8 and platelet count to 2 7. A serum chemistry shows a sodium of 142, potassium 3.8, chloride 91, bicarbonate 40, BUN 25, creatinine 0.6 and glucose 130. AB.31/90.7/160/45/98. Urine is cloudy with 2+ protein 2+ blood negative L is 0-2 RBC, 0-5 WBC, rare bacteria. Chest x-ray reveals interstitial pulmonary edema. Emphysematous change. Patient was started on BiPAP with the following parameter: IPAP 14/EPAP 6/rate 18 with a FiO2 of 40%. The hospital medicine service was consulted duration and management. Patient is admitted as an inpatient to the IMU service. Review of Systems Review of Systems: A 10 system review of systems was completed on the patient and is negative except for what is stated in the HPI. Nursing and ancillary documentation was reviewed. [facility] Past Medical History Medical History GLO positive Chronic respiratory failure with hypoxia Colon polyps COPD (chronic obstructive pulmonary disease) Emphysema lung Encounter for medication management Generalized osteoarthritis of multiple sites Hypoxemia Macular degeneration Pulmonary hypertension Pulmonary hypertension Raynaud disease Raynaud phenomenon Tobacco dependence Uterine fibroid Surgical History Surgical History S/P hysterectomy with oophorectomy Status post bilateral cataract extraction Family History Family History Father Diabetes mellitus Hypertension Malignant neoplasm of prostate Family history of malignant neoplasm of kidney Mother Diabetes mellitus Hypertension Family history of cardiovascular disease Social History Social History Social History: Smoking packs per day: 0.5 Smoking cigarettes per day: 10.0 Years smoked: 40 Smoking pack-years: 20.00 Smoking status: Current every day smoker Tobacco type: cigarettes Second hand tobacco smoke exposure: Yes Additional smoking assessment comments: smokes 3 cigarettes Alcohol intake: never Substance use: never Substance use type: does not use Lack of Transportation: No Lack of Food: Never True Current Housing: I Have Housing Concerned About Future Housing: No Difficulty Paying Gas/Electric Bills: No Difficulty Paying for Meds: No Currently Unemployed: No Education: High School Diploma/GED Difficulty w/ Childcare or Family Care: No Living arrangements: with family Occupation/Education: retired Gender identity (if verbalized by the patient): Female Sexual Orientation (if Verbalized by the Patient): Straight or Heterosexual Spiritual care concerns: No Meds Home Medications and Allergies Home Medications Medication Instructions Recorded Confirmed Type levalbuterol HCl 1.25 mg/0.5 mL 1.25 mg (0.5 mL) inhalation BID 01/25/22 01/09/23 Rx solut
[2023-01-10] MEDS: ALBUTEROL SULFATE NEB 2.5 MG/3 ML INH INHALATION ×2 (02:59→07:50)
[2023-01-10] MEDS: IPRATROPIUM BR 0.02% INH SOLN 0.5 MG/2.5 ML VIAL INHALATION ×4 (02:59→20:47)
[2023-01-10 03:54] LABS: Troponin I 0.024 ng/mL (0.000-0.034)
[2023-01-10] MEDS: methylPREDNISolone SOD SUCC 125 MG VIAL 60 MG IV PUSH (05:39)
[2023-01-10 06:05] LABS: Blood Urea Nitrogen 21 mg/dL (7-17); Calcium 8.8 mg/dL (8.4-10.2); Carbon Dioxide > 40 mmol/L (22-30); Chloride 88 mmol/L (98-107); Estimated CRCL calculation 46 ml/min; Estimated Glomerular Filt Rate > 60; Glucose 165 mg/dL (65-110); Magnesium 1.8 mg/dL (1.6-2.3); Potassium 4.3 mmol/L (3.4-5.0); Sodium 141 mmol/L (137-145)
[2023-01-10 06:14] LABS: Alveolar/Arterial O2 Gradient 116.8 mmHg; Base Excess ABG 15.9 mEq/l (+/-2.0); Fractional Inspired Oxygen 40 %; HCO3 ABG 43.6 mEq/l (22.0-26.0); Oxygen Content ABG 16.3 %vol (16.0-22.0); Oxygen Saturation ABG 96.3 % (95.0-100.0); Oxyhemoglobin 95.9 % THb (90.0-100.0); PO2 ABG 87.2 mmHg (80.0-100.0); PO2 FiO2 Ratio Arterial Blood 2.18 %; pH ABG 7.409 (7.350-7.450)
[2023-01-10 06:18] LABS: Device BIPAP; Expiratory Pressure 6 cmH2O; Inspiratory Pressure 14 cmH2O; Modified Allen's Test Pass; Site Drawn RIGHT RADIAL
[2023-01-10 06:36] LABS: Basophils Percent Auto 0.4 % (0.2-1.2); Hematocrit 34.7 % (37.0-47.0); Hemoglobin 9.9 g/dL (12.0-15.0); Immature Granulocyte Absolute 0.02 K/mm3 (0.00-0.031); Immature Granulocyte Percent A 0.4 % (0-0.5); Lymphocytes Absolute Auto 0.37 K/mm3 (0.9-3.2); Lymphocytes Percent Auto 7.1 % (18.3-44.2); Mean Corpuscular HGB Conc 28.5 g/dl (32-36); Mean Corpuscular Hemoglobin 29.5 pg (26-34); Mean Corpuscular Volume 103.3 fl (80-100); Mean Platelet Volume 11.1 fl (7.4-10.4); Monocytes Absolute Auto 0.1 K/mm3 (0.1-0.6); Monocytes Percent Auto 1.5 % (2.6-8.5); Neutrophils Absolute Auto 4.8 K/mm3 (1.3-6.7); Neutrophils Percent Auto 90.6 % (45.5-73.1); Platelet Count Result 229 k/mm3 (150-375); Red Blood Count 3.36 M/mm3 (4.2-5.4); White Blood Count 5.2 K/mm3 (4.5-10.0)
--- NOTE | 2023-01-10 09:09 | PM.IMPN ---
Progress Note: A&P Assessment and Plan (1) Acute hypercapnic respiratory failure: Code(s): J96.02 - Acute respiratory failure with hypercapnia Status: Acute Assessment and Plan: Patient present with acute hypercapnic respiratory failure with a pCO2 above 90 days. She was started on noninvasive mechanical ventilation, patient need it during the night. Continue aggressive management with IV steroid, IV antibiotic, nebulization. Repeat ABG. Consult Pulmonary., patient advanced practice professional consultation, patient need noninvasive mechanical ventilation at discharge (2) Chronic respiratory failure: Qualifiers: Respiratory failure complication: hypoxia and hypercapnia Qualified Code(s): J96.11 - Chronic respiratory failure with hypoxia; J96.12 - Chronic respiratory failure with hypercapnia; J96.12 - Chronic respiratory failure with hypercapnia Code(s): J96.10 - Chronic respiratory failure, unspecified whether with hypoxia or hypercapnia Status: Acute Assessment and Plan: Patient is on chronic oxygen several relation at home 3 L per remitted. She had a chest CT from 2019 revealing severe emphysema. Unfortunately she continues to smoke. Pulmonary consult for further management. (3) Pulmonary hypertension: Code(s): I27.20 - Pulmonary hypertension, unspecified Status: Acute Assessment and Plan: Patient has documented mild pulmonary hypertension estimated pulmonary artery systolic pressure 45 mm of Hg as of May 22, 2021. (4) History of tobacco abuse: Code(s): Z87.891 - Personal history of nicotine dependence Status: Acute Assessment and Plan: Patient remains a chronic smoker half pack per daily visual plan to quit. Patient encouraged to stop smoking. Nicotine replacement therapy. Plan Patient is admitted as a new patient to service. Code status is full code. DVT prophylaxis with Lovenox Subjective Date/time seen: 01/10/23 09:09 Interval history: I saw exam patient today patient feels dyspnea is improving. When I saw the patient, patient was on nasal cannula. Patient denies chest pain, hypertension, abdomen pain, nausea vomiting diarrhea Exam Narrative: GENERAL: Thin-appearing, well-nourished, and in no acute distress. Patient is tremulous.. HEAD: Normocephalic, atraumatic. EYES: PERRLA and EOMI. ENT: Nares clear, no rhinorrhea or epistaxis. Mucous membranes moist. NECK: Supple. CHEST: Faint scattered wheezes to auscultation. Pulmonary: No respiratory distress, decreased air entry bilateral, patient is on nasal cannula HEART: Tachycardic rate and rhythm. No murmur heard. Normal peripheral pulses. ABDOMEN: Soft, nontender, nondistended, normal active bowel sounds. EXTREMITIES: Normal range of motion. No edema. SKIN: Warm, dry, no rash. NEURO: No focal deficits. Alert and oriented x3. PSYCH: Normal mood and affect. Objective Data Vital Signs Vital Signs: Vital Signs - 24 hr 01/09/23 17:15 01/09/23 17:23 01/09/23 17:25 Temperature 97.9 F Pulse Rate 125 H Respiratory Rate 22 H Blood Pressure 153/118 H 165/65 H Pulse Oximetry 98 Oxygen Delivery Nasal Cannula Nasal Cannula Oxygen Flow Rate 4 4 Fraction of Inspired Oxygen 01/09/23 20:09 01/09/23 20:18 01/09/23 20:46 Temperature Pulse Rate 102 H 105 H 102 H Respiratory Rate 20 22 H 28 H Blood Pressure Pulse Oximetry 98 Oxygen Delivery BiPAP Oxygen Flow Rate Fraction of Inspired Oxygen 01/09/23 17:38 01/09/23 17:44 01/09/23 17:45 Temperature Pulse Rate 115 H 124 H 124 H Respiratory Rate 21 H 18 33 H Blood Pressure 145/90 H Pulse Oximetry 100 Oxygen Delivery Oxygen Flow Rate Fraction of Inspired Oxygen 01/09/23 17:46 01/09/23 18:00 01/09/23 18:16 Temperature Pulse Rate 125 H 131 H 110 H Respiratory Rate 23 H 23 H 26 H Blood Pressure 152/80 H Pulse Oximetry 100 100 Oxygen Delivery Oxygen Flow Rate
--- NOTE | 2023-01-10 10:53 | ECHO_ITS ---
Patient Info Name: Hazel Owens Age: 72 years : 1950 Gender: Female Ht: 60 in Wt: 106 lbs BSA: 1.43 m2 HR: 105 bpm BP: 114 / 46 mmHg Heart Rhythm: Sinus Rhythm, Tachycardia Technical Quality: Fair Exam Date: 01/10/2023 1:04 PM Exam Location: [facility] Pulmonary Exam Room: [facility] Patient Status: Inpatient Admit Date: 01/09/2023 Staff Ordering Physician: Tyron Gaffney MD Technical Services Librarian: Joaquina Hunt RDCS Attending Provider: Michelle Chapman MD Referring Physician: Gulshan QUINTEROS; Exam Type: CA echo dop bubble study w con Study Info Indications - hypoxia assess for pfo Complete two-dimentional, color flow and Doppler transthoracic echocardiogram is performed with agitated saline and with contrast to opacify the left ventricle and to improve the delineation of the left ventricle endocardial borders. Contrast/Agitated Saline Contrast/Ag. Saline: Definity Amount: 2.00 ml Administered By: Jordyn Rausch RDCS Existing IV Access: Yes IV Access Condition: patent with no signs of infiltration Summary 1. Left ventricular chamber dimension is normal. 2. Left ventricular systolic function is hyperdynamic, estimated at >70%. 3. The left ventricular diastolic function is grade I diastolic dysfunction. 4. Right ventricular systolic function is normal. 5. Intact interatrial septum visualized by color flow imaging. Negative bubble study. 6. There is trace mitral valve regurgitation. 7. There is mild tricuspid valve regurgitation. 8. Normal inferior vena cava with >50% collapse upon inspiration consistent with normal right atrial pressure, 3 mmHg. 9. There is trivial pericardial effusion. Left Ventricle Left ventricular chamber dimension is normal. Left ventricular systolic function is hyperdynamic, estimated at >70%. There is no increased left ventricular wall thickness. The left ventricular diastolic function is grade I diastolic dysfunction. Right Ventricle Right ventricular chamber dimension is normal. Right ventricular systolic function is normal. Left Atria Left atrial chamber dimension is normal. Right Atria Right atrial chamber dimension is normal. Atrial Septum Intact interatrial septum visualized by color flow imaging. Negative bubble study. Aortic Valve The aortic valve is not well visualized. There is no aortic valve stenosis. There is no aortic valve regurgitation. Pulmonic Valve The pulmonic valve is not well visualized. Mitral Valve There is trace mitral valve regurgitation. The mitral valve annulus is mildly calcified. Tricuspid Valve There is mild tricuspid valve regurgitation. Pericardium/Pleural There is trivial pericardial effusion. Inferior Vena Cava Normal inferior vena cava with >50% collapse upon inspiration consistent with normal right atrial pressure, 3 mmHg. Aorta The aortic root size at the sinus of Valsalva is normal. Left Ventricular Outflow Tract Name Value Normal LVOT 2D LVOT Diameter 2.0 cm LVOT Doppler LVOT Peak Gradient 10 mmHg LVOT Mean Gradient 6 mmHg LVOT VTI 25 cm LVOT VTI/AV VTI Rat
[2023-01-10 11:24] LABS: Hypochromasia 1+ (NORMAL); Platelet Estimate Adequate (Adequate)
[2023-01-10 11:25] LABS: Basophilic Stippling 2+ (NORMAL); Schistocytes None Seen (NORMAL)
--- NOTE | 2023-01-10 12:50 | PM.CNPUL ---
Assessment and Plan Assessment and plan (1) Acute exacerbation of chronic obstructive airways disease: Code(s): J44.1 - Chronic obstructive pulmonary disease with (acute) exacerbation Status: Acute Assessment and Plan: Gold grade 3 group B COPD Patient with 20 pack year tobacco use, currently smoking, FEV1 0.80 L, 46% predicted with air trapping, hyperinflation and decreased DLCO when corrected for alveolar volume, CT scan of chest on 12/12/2022 with severe apical greater than basilar panlobular emphysema, echo on 05/22/2021 with a PASP of 45, chronic hypoxemic respiratory failure using 4 L nasal cannula at rest, with ambulation it sleep, chronic hypercarbic respiratory failure with serum bicarbonate on 04/27/2000 07/13/2035, 38 on 11/02/2022 and greater than 40 on this admission. Patient presents 01/09/23 now with an acute exacerbation of COPD with 3 days history of shortness of breath, cough, wheezing with no change in phlegm production. Patient had an ABG of 7.32/90/160 on 5 L. she was treated with BiPAP 05/12 with a repeat blood gas of 7.41/70/87. 01/10/23: She says that she is overall improved and ready to come off the BiPAP and was placed on 4 L nasal cannula later in the day with saturations 100%. Her white blood cell count is 5.2, creatinine is 0.7, bicarb is greater than 40. She has no wheezing on exam. Plan: I will decrease her Solu-Medrol to 60 mg IV q.6. I will increase the frequency her of her ipratropium and levalbuterol nebulizers from Q 6 to q.[address] the patient on azithromycin 500 mg p.o. q.day for tracheobronchitis. Patient will wear her BiPAP p.r.n. for comfort and at night. Continue supplemental oxygen to maintain saturations 90-94%. I will obtain an echocardiogram to assess her LV function, valvular function and PA pressures. Discussed with doctor Watts, will follow with you. (2) Respiratory failure with hypoxia and hypercapnia: Code(s): J96.91 - Respiratory failure, unspecified with hypoxia; J96.92 - Respiratory failure, unspecified with hypercapnia Status: Acute Assessment and Plan: Patient with severe COPD and chronic hypoxemic respiratory failure using 4 L nasal cannula at rest, with ambulation it sleep, chronic hypercarbic respiratory failure with serum bicarbonate on 04/27/2000 07/13/2035, 38 on 11/02/2022 and greater than 40 on this admission. Patient had an ABG of 7.32/90/160 on 5 L. she was treated with BiPAP 14/6 with a repeat blood gas of 7.41/70/87. The patient has severe COPD with chronic hypercarbic respiratory failure and would benefit from noninvasive ventilation to prevent further deterioration and to prevent for subsequent hospitalizations. 01/10: Patient is currently wearing BiPAP set rate 18 14/6 with tidal volumes 277 and she states that this is uncomfortable for her. The air as to quick and she could not sleep with this. I changed her to noninvasive ventilator with the AVAPS mode and adjusted settings to comfort with a rate of 14, tidal volume 450, EPAP 5, minimal inspiratory pressure 6, maximal inspiratory pressure 25, inspiratory time 1.0 seconds, rise of 4 and 32% FiO2 and she said that this was much more comfortable. I will obtain overnight oximetry and a blood gas prior to removal of these settings. I will initiate the process for a home noninvasive ventilator through her [employer] and her insurance essence. History of Present Illness History of Present Illness Consult date: 01/10/23 Chief complaint: Acute Hypercapnic Resp Failure/COPD Exacerbation Narrative: 01/10/2023: This is a new pulmonary consult for COPD exacerbation with hypoxemic and hypercarbic respiratory failure. 72-year-old with a history of COPD, positive in a GLO and Raynaud's without SLE, pulmonary hypertension, hypoxemic respiratory failure was followed in the Pulmonary Clinic. Patient was last seen on 11/28/2022 and the patient was maintained on trilogy 100, was treate
[2023-01-10] MEDS: PERFLUTREN LIPID MICROSPHERES 1.5 ML VIAL DILUTED TO 10 ML TOTAL VOLUME IV PUSH (13:20)
[2023-01-10] MEDS: methylPREDNISolone SOD SUCC 40 MG VIAL 20 MG IV PUSH ×3 (13:51→23:10)
[2023-01-10] MEDS: LEVALBUTEROL NEB 1.25 MG/3 ML INHALATION ×2 (14:47→20:47)
[2023-01-10] MEDS: AZITHROMYCIN 250 MG TABLET 500 MG PO (16:39)
[2023-01-11] VITALS (23 sets, daily range): BP systolic 117–155; BP diastolic 55–67; PULSE 61–121; RESP 16–24; TEMP 36.2–37.1; O2SAT 92–100
--- NOTE | 2023-01-11 07:01 | PC.NURSE ---
Paper documentation exists on this patient due to [facility] downtime on 01/11/23 from to [0700] .
[2023-01-11] MEDS: IPRATROPIUM BR 0.02% INH SOLN 0.5 MG/2.5 ML VIAL INHALATION ×4 (07:41→21:14)
[2023-01-11] MEDS: LEVALBUTEROL NEB 1.25 MG/3 ML INHALATION (07:41)
[2023-01-11] MEDS: AZITHROMYCIN 250 MG TABLET 500 MG PO (09:21)
[2023-01-11 11:15] LABS: pH ABG 7.482 (7.350-7.450)
[2023-01-11 11:16] LABS: Alveolar/Arterial O2 Gradient 79.1 mmHg; HCO3 ABG 44.2 mEq/l (22.0-26.0); PO2 ABG 78.4 mmHg (80.0-100.0); Total Hemoglobin 10.9 g/dL (12.0-18.0)
[2023-01-11 11:17] LABS: Carboxyhemoglobin 0.6 % THb (0-2.0); Methemoglobin ABG 0.3 %THb (0-1.5); Oxygen Content ABG 14.6 %vol (16.0-22.0); Oxyhemoglobin 94.6 % THb (90.0-100.0); Reduced Hemoglobin 4.5 %THb (0-5.0)
[2023-01-11 11:18] LABS: Fractional Inspired Oxygen 32 %; PO2 FiO2 Ratio Arterial Blood 2.45 %
[2023-01-11 11:19] LABS: PCO2 ABG 60.4 mmHg (35.0-45.0)
--- NOTE | 2023-01-11 11:19 | PM.IMPN ---
Progress Note: A&P Assessment and Plan (1) Acute hypercapnic respiratory failure: Code(s): J96.02 - Acute respiratory failure with hypercapnia Status: Acute Assessment and Plan: Patient present with acute hypercapnic respiratory failure with a pCO2 above 90 days. She was started on noninvasive mechanical ventilation, patient need it during the night. Continue aggressive management with IV steroid, IV antibiotic, nebulization. Repeat ABG. Consult Pulmonary., patient brand leader consultation, patient needs noninvasive mechanical ventilation at discharge Discontinue the Wellbutrin because of worsening hand tremor (2) Chronic respiratory failure: Qualifiers: Respiratory failure complication: hypoxia and hypercapnia Qualified Code(s): J96.11 - Chronic respiratory failure with hypoxia; J96.12 - Chronic respiratory failure with hypercapnia; J96.12 - Chronic respiratory failure with hypercapnia Code(s): J96.10 - Chronic respiratory failure, unspecified whether with hypoxia or hypercapnia Status: Acute Assessment and Plan: Patient is on chronic oxygen several relation at home 3 L per remitted. She had a chest CT from 2019 revealing severe emphysema. Unfortunately she continues to smoke. Pulmonary consult for further management. (3) Acute exacerbation of chronic obstructive airways disease: Code(s): J44.1 - Chronic obstructive pulmonary disease with (acute) exacerbation Status: Acute Assessment and Plan: Appreciate pulmonary consultation Per brand leader, Solu-Medrol 20 IV q.6 changed to prednisone 40 q.day, day 3 of steroids. levalbuterol nebulizers discontinued as patient has severe shaking and tremors.? Continue ipratropium 0.5 mg nebulized q.4 hours.? Continue azithromycin 500 mg p.o. q.day, day 2.? She reportedly has on 4 L nasal cannula at home but currently she is saturating well on 2 L nasal cannula with a goal saturation 90-94%. (4) Pulmonary hypertension: Code(s): I27.20 - Pulmonary hypertension, unspecified Status: Acute Assessment and Plan: Patient has documented mild pulmonary hypertension estimated pulmonary artery systolic pressure 45 mm of Hg as of May 22, 2021. (5) History of tobacco abuse: Code(s): Z87.891 - Personal history of nicotine dependence Status: Acute Assessment and Plan: Patient remains a chronic smoker half pack per daily visual plan to quit. Patient encouraged to stop smoking. Nicotine replacement therapy. (6) Respiratory failure with hypoxia and hypercapnia: Code(s): J96.91 - Respiratory failure, unspecified with hypoxia; J96.92 - Respiratory failure, unspecified with hypercapnia Status: Acute (7) Essential tremor: Code(s): G25.0 - Essential tremor Status: Acute Assessment and Plan: Worse in the central tremor, likely secondary to bronchodilators, discussed the case with Pulmonary, discontinue Xopenex Also consult neurologist for evaluation treatment Plan Patient is admitted as a new patient to service. Code status is full code. DVT prophylaxis with Lovenox Subjective Date/time seen: 01/11/23 11:19 Interval history: I saw exam patient today patient feels dyspnea is improving. When I saw the patient, patient was on nasal cannula. Patient denies chest pain, hypertension, abdomen pain, nausea vomiting diarrhea Exam Narrative: GENERAL: Thin-appearing, well-nourished, and in no acute distress. Patient is tremulous.. HEAD: Normocephalic, atraumatic. EYES: PERRLA and EOMI. ENT: Nares clear, no rhinorrhea or epistaxis. Mucous membranes moist. NECK: Supple. CHEST: Faint scattered wheezes to auscultation. Pulmonary: No respiratory distress, decreased air entry bilateral, patient is on nasal cannula HEART: Tachycardic rate and rhythm. No murmur heard. Normal peripheral pulses. ABDOMEN: Soft, nontender, nondistended, normal active bowel sounds. EXTREMITIES:
[2023-01-11 11:20] LABS: Non-Invasive Vent Rate 14 /MIN
[2023-01-11 11:22] LABS: Device NON-INVASIVE VENT
--- NOTE | 2023-01-11 11:58 | PCCCNOTE ---
On 01/11/23, the student, [Alia Messer], provided care and completed [facility] documentation on this patient. I have reviewed the student's documentation and agree with the findings.
--- NOTE | 2023-01-11 12:04 | PM.PNPUL ---
Progress Note: A&P Assessment and Plan (1) Acute exacerbation of chronic obstructive airways disease: Code(s): J44.1 - Chronic obstructive pulmonary disease with (acute) exacerbation Status: Acute Assessment and Plan: Gold grade 3 group B COPD Patient with 20 pack year tobacco use, currently smoking, FEV1 0.80 L, 46% predicted with air trapping, hyperinflation and decreased DLCO when corrected for alveolar volume, CT scan of chest on 12/12/2022 with severe apical greater than basilar panlobular emphysema, echo on 05/22/2021 with a PASP of 45, chronic hypoxemic respiratory failure using 4 L nasal cannula at rest, with ambulation it sleep, chronic hypercarbic respiratory failure with serum bicarbonate on 04/27/2000 07/13/2035, 38 on 11/02/2022 and greater than 40 on this admission. Patient presents 01/09/23 now with an acute exacerbation of COPD with 3 days history of shortness of breath, cough, wheezing with no change in phlegm production. Patient had an ABG of 7.32/90/160 on 5 L. she was treated with BiPAP 05/12 with a repeat blood gas of 7.41/70/87. 01/10/23: She says that she is overall improved and ready to come off the BiPAP and was placed on 4 L nasal cannula later in the day with saturations 100%. Her white blood cell count is 5.2, creatinine is 0.7, bicarb is greater than 40. She has no wheezing on exam. Plan: I will decrease her Solu-Medrol to 60 mg IV q.6. I will increase the frequency her of her ipratropium and levalbuterol nebulizers from Q 6 to q.[address] the patient on azithromycin 500 mg p.o. q.day for tracheobronchitis. Patient will wear her BiPAP p.r.n. for comfort and at night. Continue supplemental oxygen to maintain saturations 90-94%. I will obtain an echocardiogram to assess her LV function, valvular function and PA pressures. 01/11: Patient states she is breathing back to her baseline. She is now able to expectorate which is an improvement for her. She is currently on 4 L nasal with saturations 99% and I decreased her to 2 L and her saturations remain 96%. Plan: Solu-Medrol 20 IV q.6 changed to prednisone 40 q.day, day 3 of steroids. levalbuterol nebulizers discontinued as patient has severe shaking and tremors. Continue ipratropium 0.5 mg nebulized q.4 hours. Continue azithromycin 500 mg p.o. q.day, day 2. She reportedly has on 4 L nasal cannula at home but currently she is saturating well on 2 L nasal cannula with a goal saturation 90-94%. Discussed with Dr. Watts, will follow with you. (2) Respiratory failure with hypoxia and hypercapnia: Code(s): J96.91 - Respiratory failure, unspecified with hypoxia; J96.92 - Respiratory failure, unspecified with hypercapnia Status: Acute Assessment and Plan: Patient with severe COPD and chronic hypoxemic respiratory failure using 4 L nasal cannula at rest, with ambulation it sleep, chronic hypercarbic respiratory failure with serum bicarbonate on 04/27/2000 07/13/2035, 38 on 11/02/2022 and greater than 40 on this admission. Patient had an ABG of 7.32/90/160 on 5 L. she was treated with BiPAP 14/6 with a repeat blood gas of 7.41/70/87. The patient has severe COPD with chronic hypercarbic respiratory failure and would benefit from noninvasive ventilation to prevent further deterioration and to prevent for subsequent hospitalizations. 01/10: Patient is currently wearing BiPAP set rate 18 14/6 with tidal volumes 277 and she states that this is uncomfortable for her. The air as to quick and she could not sleep with this. I changed her to noninvasive ventilator with the AVAPS mode and adjusted settings to comfort with a rate of 14, tidal volume 450, EPAP 5, minimal inspiratory pressure 6, maximal inspiratory pressure 25, inspiratory time 1.0 seconds, rise of 4 and 32% FiO2 and she said that this was much more comfortable. I will obtain overnight oximetry and a blood gas prior to removal of these settings. I will initiate the process for a home n
[2023-01-11] MEDS: predniSONE 20 MG TABLET 40 MG PO (12:06)
--- NOTE | 2023-01-11 12:10 | WPDNEURCNPN ---
Assessment and Plan Assessment and plan (1) Acute exacerbation of chronic obstructive airways disease: Code(s): J44.1 - Chronic obstructive pulmonary disease with (acute) exacerbation Status: Acute (2) Tremors of nervous system: Code(s): R25.1 - Tremor, unspecified Status: Acute Plan 1. His urological tremors with the hint of underlying essential tremor could have been aggravated by the ongoing treatment for the emphysema. Will re-examine her tomorrow before considering any specific treatment and discuss further Consult date: 01/11/23 HPI: Hazel Owens is a 72 year old female admitted to the hospital for the complaints of shortness of breath in addition to the history of underlying COPD although she still smokes few cigarettes per day and has been getting more short of breath gradually in addition she has been somewhat she, she does have ongoing history of 1. Chronic respiratory failure with hypoxia and COPD with emphysema 2. Generalized osteoarthritis 3. Macular degeneration 4. Pulmonary hypertension 5. Tobacco dependence and 6. Raynaud disease. she has history of years smoked 40 with smoking pack years 20 and currently being everyday smoker. There is no history of alcohol intake, her initial exam in the emergency room documented her to be in no acute distress, with faint wheezing, but no gross neurological deficit, her vital signs with blood pressure of 153/118 and respiration rate of 22 with pulse of 125, her initial evaluation revealed CO2 greater than 40 BNP 491 some interstitial edema on chest x-ray he was given steroids intravenously, neuro consult has been obtained because of the gross tremors and present treatment does not include any kind of medications for the tremor. [facility] Past Medical History Medical History GLO positive Chronic respiratory failure with hypoxia Colon polyps COPD (chronic obstructive pulmonary disease) Emphysema lung Encounter for medication management Generalized osteoarthritis of multiple sites Hypoxemia Macular degeneration Pulmonary hypertension Pulmonary hypertension Raynaud disease Raynaud phenomenon Tobacco dependence Uterine fibroid Surgical History Surgical History S/P hysterectomy with oophorectomy Status post bilateral cataract extraction Family History Family History Father Diabetes mellitus Hypertension Malignant neoplasm of prostate Family history of malignant neoplasm of kidney Mother Diabetes mellitus Hypertension Family history of cardiovascular disease Social History Social History Social History: Smoking packs per day: 0.5 Smoking cigarettes per day: 10.0 Years smoked: 40 Smoking pack-years: 20.00 Smoking status: Current every day smoker Tobacco type: cigarettes Second hand tobacco smoke exposure: Yes Additional smoking assessment comments: smokes 3 cigarettes Alcohol intake: never Substance use: never Substance use type: does not use Lack of Transportation: No Lack of Food: Never True Current Housing: I Have Housing Concerned About Future Housing: No Difficulty Paying Gas/Electric Bills: No Difficulty Paying for Meds: No Currently Unemployed: No Education: High School Diploma/GED Difficulty w/ Childcare or Family Care: No Living arrangements: with family Occupation/Education: retired Gender identity (if verbalized by the patient): Female Sexual Orientation (if Verbalized by the Patient): Straight or Heterosexual Spiritual care concerns: No Meds Home Medications and Allergies Home Medications Medication Instructions Recorded Confirmed Type levalbuterol HCl 1.25 mg/0.5 mL 1.25 mg (0.5 mL) inhalation BID 01/25/22 01/09/23 Rx solution for nebulization PRN shor
--- NOTE | 2023-01-11 14:38 | PCOTNOTE ---
Attempted to see pt. for occupational therapy evaluation. Nursing requested waiting of evaluation due to pt's recent sharp increase in HR with PT evaluation. Following.
[2023-01-11] MEDS: HEPARIN SODIUM 5,000 UNITS/ML VIAL 5000 UNITS SUB-Q ×2 (15:51→22:36)
--- NOTE | 2023-01-11 15:51 | PCRCNOTE ---
PATIENT HAS ORDERS SIGNED AND AWAITING APPROVAL FROM INSURANCE AND [facility] FOR HOME ASTRAL UNIT SET UP. ([facility] EM[facility] DOESNT PROVIDE TRILOGY UNITS) [facility] AND SHE WILL SET UP ONCE APPROVED, SHE WILL ALSO CALL DR TONEY WHEN READY SET UP. ORDER IS SCANNED INTO CHART
--- NOTE | 2023-01-11 16:13 | PCPTNOTE ---
On 01/11/23, the student, ELDER Chaidez, provided care and completed [facility] documentation on this patient. I have reviewed the student's documentation and agree with the findings.
--- NOTE | 2023-01-11 18:33 | PC.NURSE ---
This patient, Hazel Owens, was transferred to [ 312] on 01/11/23 at 1810 Personal belongings sent with patient. Report given to [Nita HDZ ]. Appropriate documentation sent with patient.
[2023-01-12] VITALS (21 sets, daily range): BP systolic 112–136; BP diastolic 73–96; PULSE 61–105; RESP 14–18; TEMP 36.3–37.1; O2SAT 93–99
[2023-01-12] MEDS: IPRATROPIUM BR 0.02% INH SOLN 0.5 MG/2.5 ML VIAL INHALATION ×6 (01:26→20:48)
[2023-01-12] MEDS: HEPARIN SODIUM 5,000 UNITS/ML VIAL 5000 UNITS SUB-Q ×2 (05:15→21:12)
[2023-01-12] MEDS: AZITHROMYCIN 250 MG TABLET 500 MG PO (08:48)
[2023-01-12] MEDS: predniSONE 20 MG TABLET 40 MG PO (08:48)
--- NOTE | 2023-01-12 12:32 | WPDNEUROPN ---
Subjective Date/time seen: 01/12/23 12:32 Interval history: 72 years old with history of chronic obstructive pulmonary disease and intermittent acute of tremors,on medications accordingly but has access [place] of the physiological tremors though not suggestive of underlying Parkinson's disease will try the low dosage of the primidone that is 25 mg b.i.d. discussed with her in front of her family members. Exam Narrative: [age] years old with history of COPD with intermittent acute exacerbation of physiological tremor without evidence of any resting tremors definitely looks better today but family and also patient herself would like to try some medication I ordered primidone 25 mg b.i.d. for a trial. Objective Data Vital Signs Vital Signs: Vital Signs - 24 hr 01/11/23 12:57 01/11/23 13:10 01/11/23 13:28 Temperature Pulse Rate 121 H 117 H Respiratory Rate 20 20 Blood Pressure Pulse Oximetry Oxygen Delivery Nasal Cannula Oxygen Flow Rate 2 Fraction of Inspired Oxygen 01/11/23 15:16 01/11/23 15:24 01/11/23 16:26 Temperature 37.1 C Pulse Rate 101 H 109 H 81 Respiratory Rate 20 20 21 H Blood Pressure 155/63 H Pulse Oximetry 97 Oxygen Delivery Oxygen Flow Rate Fraction of Inspired Oxygen 01/11/23 16:00 01/11/23 18:28 01/11/23 21:19 Temperature 36.9 C Pulse Rate 104 H 105 H 83 Respiratory Rate 16 16 Blood Pressure 133/67 Pulse Oximetry 98 Oxygen Delivery Oxygen Flow Rate Fraction of Inspired Oxygen 01/11/23 21:21 01/11/23 21:24 01/11/23 21:44 Temperature 36.3 C L Pulse Rate 83 94 100 Respiratory Rate 16 16 22 H Blood Pressure 150/59 H Pulse Oximetry 92 100 Oxygen Delivery Nasal Cannula Oxygen Flow Rate 3 Fraction of Inspired Oxygen 01/12/23 01:27 01/11/23 23:00 01/11/23 20:00 Temperature Pulse Rate 61 83 106 H Respiratory Rate 17 24 H Blood Pressure Pulse Oximetry 92 Oxygen Delivery BiPAP Oxygen Flow Rate Fraction of Inspired Oxygen 01/11/23 20:00 01/12/23 00:00 01/12/23 04:00 Temperature Pulse Rate 61 105 H 62 Respiratory Rate 17 Blood Pressure Pulse Oximetry 93 Oxygen Delivery BiPAP Oxygen Flow Rate Fraction of Inspired Oxygen 01/12/23 05:39 01/12/23 08:23 01/12/23 08:24 Temperature Pulse Rate 61 86 Respiratory Rate 14 18 Blood Pressure Pulse Oximetry 98 93 Oxygen Delivery BiPAP Nasal Cannula Oxygen Flow Rate 2 Fraction of Inspired Oxygen 28 01/12/23 08:32 01/12/23 08:00 01/12/23 08:00 Temperature Pulse Rate 88 82 Respiratory Rate 18 Blood Pressure Pulse Oximetry 95 Oxygen Delivery Nasal Cannula Oxygen Flow Rate 2 Fraction of Inspired Oxygen 01/12/23 09:43 01/12/23 12:02 Temperature Pulse Rate 92 Respiratory Rate 16 Blood Pressure Pulse Oximetry 96 Oxygen Delivery Nasal Cannula Oxygen Flow Rate 1 Fraction of Inspired Oxygen Intake/Output Intake/Output: Intake & Output 01/09/23 01/10/23 01/11/23 01/12/23 23:59 23:59 23:59 23:59 Intake Total 1080 1220 950 Output Total 1000 1125 0 Balance 80 95 950 Meds/Results Medications: Active Medications Generic Name Dose Route Start Last Admin Trade Name Freq PRN Reason Stop Dose Admin Acetaminophen 650 mg 01/09/23 20:31 Acetaminophen 325 Mg Tablet PO Q4H PRN Mild Pain (1-3) or Fever Azithromycin 500 mg 01/10/23 14:35 01/12/23 08:48 Azithromycin 250 Mg Tablet PO 500 mg DAILY [facility] Administration Ergocalciferol 50,000 units 01/14/23 09:00 Ergocalciferol 50,000 Units Capsule PO Mo@0900 [facility] Heparin Sodium (Porcine) 5,000 units 01/10/23 22:00 01/12/23 05:15 Heparin Sodium 5,000 Units/Ml Vial SUB-Q 5,000 units Q8HR WIN[facility]RED Administration Ipratropium [place] 0.5 mg 01/11/23 12:00 01/12/23 12:02 Ipratropium Br 0.02% Inh Soln 0.5 Mg/2.5 Ml Vial INHALATION 0.5 mg Q4HRT [facility] Administratio
--- NOTE | 2023-01-12 12:53 | PM.PNPUL ---
Progress Note: A&P Assessment and Plan (1) Acute exacerbation of chronic obstructive airways disease: Code(s): J44.1 - Chronic obstructive pulmonary disease with (acute) exacerbation Status: Acute Assessment and Plan: Gold grade 3 group B COPD Patient with 20 pack year tobacco use, currently smoking, FEV1 0.80 L, 46% predicted with air trapping, hyperinflation and decreased DLCO when corrected for alveolar volume, CT scan of chest on 12/12/2022 with severe apical greater than basilar panlobular emphysema, echo on 05/22/2021 with a PASP of 45, chronic hypoxemic respiratory failure using 4 L nasal cannula at rest, with ambulation it sleep, chronic hypercarbic respiratory failure with serum bicarbonate on 04/27/2000 07/13/2035, 38 on 11/02/2022 and greater than 40 on this admission. Patient presents 01/09/23 now with an acute exacerbation of COPD with 3 days history of shortness of breath, cough, wheezing with no change in phlegm production. Patient had an ABG of 7.32/90/160 on 5 L. she was treated with BiPAP 05/12 with a repeat blood gas of 7.41/70/87. 01/10/23: She says that she is overall improved and ready to come off the BiPAP and was placed on 4 L nasal cannula later in the day with saturations 100%. Her white blood cell count is 5.2, creatinine is 0.7, bicarb is greater than 40. She has no wheezing on exam. Plan: I will decrease her Solu-Medrol to 60 mg IV q.6. I will increase the frequency her of her ipratropium and levalbuterol nebulizers from Q 6 to q.[address] the patient on azithromycin 500 mg p.o. q.day for tracheobronchitis. Patient will wear her BiPAP p.r.n. for comfort and at night. Continue supplemental oxygen to maintain saturations 90-94%. I will obtain an echocardiogram to assess her LV function, valvular function and PA pressures. 01/11: Patient states she is breathing back to her baseline. She is now able to expectorate which is an improvement for her. She is currently on 4 L nasal with saturations 99% and I decreased her to 2 L and her saturations remain 96%. Plan: Solu-Medrol 20 IV q.6 changed to prednisone 40 q.day, day 3 of steroids. levalbuterol nebulizers discontinued as patient has severe shaking and tremors. Continue ipratropium 0.5 mg nebulized q.4 hours. Continue azithromycin 500 mg p.o. q.day, day 2. She reportedly has on 4 L nasal cannula at home but currently she is saturating well on 2 L nasal cannula with a goal saturation 90-94%. 01/12: Patient states her breathing is better. She has no shortness of breath at rest but does have dyspnea on exertion. She did sleep last night with the hospital noninvasive ventilator. Off the levalbuterol she says her tremors persist but are improved. She has no wheezing on exam. Currently she is on 1 L nasal cannula with saturations 97%. Plan: prednisone 40 q.day, day 4 of steroids. levalbuterol nebulizers discontinued 721 in no clinical change and tremors have improved. Change ipratropium 0.5 mg nebulized q.4 hours nebs to q.4 hours while awake.. Continue azithromycin 500 mg p.o. q.day, day 3. She reportedly has on 4 L nasal cannula at home but currently she is saturating well on 1L nasal cannula with a goal saturation 90-94%. Discussed with Dr. Watts, will follow with you. (2) Respiratory failure with hypoxia and hypercapnia: Code(s): J96.91 - Respiratory failure, unspecified with hypoxia; J96.92 - Respiratory failure, unspecified with hypercapnia Status: Acute Assessment and Plan: Patient with severe COPD and chronic hypoxemic respiratory failure using 4 L nasal cannula at rest, with ambulation it sleep, chronic hypercarbic respiratory failure with serum bicarbonate on 04/27/2000 07/13/2035, 38 on 11/02/2022 and greater than 40 on this admission. Patient had an ABG of 7.32/90/160 on 5 L. she was treated with BiPAP 05/12 with a repeat blood gas of 7.41/70/87. The patient has severe COPD with chronic hypercarbic respiratory failu
--- NOTE | 2023-01-12 15:00 | PM.IMPN ---
Progress Note: A&P Assessment and Plan (1) Acute hypercapnic respiratory failure: Code(s): J96.02 - Acute respiratory failure with hypercapnia Status: Acute Assessment and Plan: Patient present with acute hypercapnic respiratory failure with a pCO2 above 90 days. She was started on noninvasive mechanical ventilation, patient need it during the night. Continue aggressive management with IV steroid, IV antibiotic, nebulization. Repeat ABG. Consult Pulmonary., patient lead ruby on rails developer consultation, patient needs noninvasive mechanical ventilation at discharge Discontinue the Wellbutrin because of worsening hand tremor (2) Chronic respiratory failure: Qualifiers: Respiratory failure complication: hypoxia and hypercapnia Qualified Code(s): J96.11 - Chronic respiratory failure with hypoxia; J96.12 - Chronic respiratory failure with hypercapnia; J96.12 - Chronic respiratory failure with hypercapnia Code(s): J96.10 - Chronic respiratory failure, unspecified whether with hypoxia or hypercapnia Status: Acute Assessment and Plan: Patient is on chronic oxygen several relation at home 3 L per remitted. She had a chest CT from 2019 revealing severe emphysema. Unfortunately she continues to smoke. Pulmonary consult for further management. (3) Acute exacerbation of chronic obstructive airways disease: Code(s): J44.1 - Chronic obstructive pulmonary disease with (acute) exacerbation Status: Acute Assessment and Plan: Appreciate pulmonary consultation Per lead ruby on rails developer, Received solu-Medrol 20 IV q.6 changed to prednisone 40 q.day, day 3 of steroids. levalbuterol nebulizers discontinued as patient has severe shaking and tremors.? Continue ipratropium 0.5 mg nebulized q.4 hours.? Continue azithromycin 500 mg p.o. q.day, day 2.? She reportedly has on 4 L nasal cannula at home but currently she is saturating well on 2 L nasal cannula with a goal saturation 90-94%. (4) Pulmonary hypertension: Code(s): I27.20 - Pulmonary hypertension, unspecified Status: Acute Assessment and Plan: Patient has documented mild pulmonary hypertension estimated pulmonary artery systolic pressure 45 mm of Hg as of May 22, 2021. (5) History of tobacco abuse: Code(s): Z87.891 - Personal history of nicotine dependence Status: Acute Assessment and Plan: Patient remains a chronic smoker half pack per daily visual plan to quit. Patient encouraged to stop smoking. Nicotine replacement therapy. (6) Respiratory failure with hypoxia and hypercapnia: Code(s): J96.91 - Respiratory failure, unspecified with hypoxia; J96.92 - Respiratory failure, unspecified with hypercapnia Status: Acute (7) Essential tremor: Code(s): G25.0 - Essential tremor Status: Acute Assessment and Plan: Worse in the central tremor, likely secondary to bronchodilators, discussed the case with Pulmonary, discontinue Xopenex Also consult neurologist for evaluation treatment, neurologist considers not Parkinson disease, recommend start primidone 25 mg b.i.d. p.o. Plan Patient is admitted as a new patient to service. Code status is full code. DVT prophylaxis with Lovenox Subjective Date/time seen: 01/12/23 15:00 Interval history: I saw exam patient today. Patient has no new issue events over the night.. Patient toleratese hospital noninvasive ventilator.? Patient is on nasal cannula Exam Narrative: GENERAL: Thin-appearing, well-nourished, and in no acute distress. Patient is tremulous.. HEAD: Normocephalic, atraumatic. EYES: PERRLA and EOMI. ENT: Nares clear, no rhinorrhea or epistaxis. Mucous membranes moist. NECK: Supple. CHEST: Faint scattered wheezes to auscultation. Pulmonary: No respiratory distress, decreased air entry bilateral, patient is on nasal cannula HEART: Tachycardic rate and rhythm. No murmur heard. Normal peripheral pulses. ABDOMEN: Soft, nont
[2023-01-12] MEDS: PRIMIDONE 25 MG TABLET PO (16:08)
[2023-01-13] VITALS (25 sets, daily range): BP systolic 125–140; BP diastolic 53–58; PULSE 66–129; RESP 15–22; TEMP 36.1–37.4; O2SAT 85–100
[2023-01-13] MEDS: predniSONE 20 MG TABLET 40 MG PO (08:23)
[2023-01-13] MEDS: PRIMIDONE 25 MG TABLET PO ×2 (08:23→16:58)
[2023-01-13] MEDS: AZITHROMYCIN 250 MG TABLET 500 MG PO (08:23)
[2023-01-13] MEDS: IPRATROPIUM BR 0.02% INH SOLN 0.5 MG/2.5 ML VIAL INHALATION ×4 (08:26→19:34)
--- NOTE | 2023-01-13 08:34 | PM.IMPN ---
Progress Note: A&P Assessment and Plan (1) Acute hypercapnic respiratory failure: Code(s): J96.02 - Acute respiratory failure with hypercapnia Status: Acute Assessment and Plan: Patient present with acute hypercapnic respiratory failure with a pCO2 above 90 days. She was started on noninvasive mechanical ventilation, patient need it during the night. Continue aggressive management with IV steroid, IV antibiotic, nebulization. Repeat ABG. Consult Pulmonary., patient inside sales specialist consultation, patient needs noninvasive mechanical ventilation at discharge Discontinue the Wellbutrin because of worsening hand tremor (2) Chronic respiratory failure: Qualifiers: Respiratory failure complication: hypoxia and hypercapnia Qualified Code(s): J96.11 - Chronic respiratory failure with hypoxia; J96.12 - Chronic respiratory failure with hypercapnia; J96.12 - Chronic respiratory failure with hypercapnia Code(s): J96.10 - Chronic respiratory failure, unspecified whether with hypoxia or hypercapnia Status: Acute Assessment and Plan: Patient is on chronic oxygen several relation at home 3 L per remitted. She had a chest CT from 2019 revealing severe emphysema. Unfortunately she continues to smoke. Pulmonary consult for further management. (3) Acute exacerbation of chronic obstructive airways disease: Code(s): J44.1 - Chronic obstructive pulmonary disease with (acute) exacerbation Status: Acute Assessment and Plan: Appreciate pulmonary consultation Per inside sales specialist, Received solu-Medrol 20 IV q.6 changed to prednisone . levalbuterol nebulizers discontinued as patient has severe shaking and tremors.? Continue ipratropium 0.5 mg nebulized q.4 hours.? Continue azithromycin 500 mg p.o. q.till tomorrow , dc steroid today She reportedly has on 4 L nasal cannula at home but currently she is saturating well on 2 L nasal cannula with a goal saturation 90-94%. AVAPS? is approved (4) Pulmonary hypertension: Code(s): I27.20 - Pulmonary hypertension, unspecified Status: Acute Assessment and Plan: Patient has documented mild pulmonary hypertension estimated pulmonary artery systolic pressure 45 mm of Hg as of May 22, 2021. (5) History of tobacco abuse: Code(s): Z87.891 - Personal history of nicotine dependence Status: Acute Assessment and Plan: Patient remains a chronic smoker half pack per daily visual plan to quit. Patient encouraged to stop smoking. Nicotine replacement therapy. (6) Respiratory failure with hypoxia and hypercapnia: Code(s): J96.91 - Respiratory failure, unspecified with hypoxia; J96.92 - Respiratory failure, unspecified with hypercapnia Status: Acute (7) Essential tremor: Code(s): G25.0 - Essential tremor Status: Acute Assessment and Plan: Worse in the central tremor, likely secondary to bronchodilators, discussed the case with Pulmonary, discontinue Xopenex Also consult neurologist for evaluation treatment, neurologist considers not Parkinson disease, recommend start primidone 25 mg b.i.d. p.o. tremor is better controlled Plan Patient is admitted as a new patient to service. Code status is full code. DVT prophylaxis with Lovenox patient is ready to be discharged today. the RNs and spiritual care coordinator of working on discharge Subjective Date/time seen: 01/13/23 08:34 Interval history: I saw exam patient today. Patient has no new issue events over the night.. Patient toleratese hospital noninvasive ventilator.? Patient is on nasal cannula, tremor is better controlled, patient is afebrile, hemodynamically stable, Exam Narrative: GENERAL: Thin-appearing, well-nourished, and in no acute distress. Patient is tremulous.. HEAD: Normocephalic, atraumatic. EYES: PERRLA and EOMI. ENT: Nares clear, no rhinorrhea or epistaxis. Mucous membranes moist. NECK: Supple. CHEST: no wheezes to auscu
--- NOTE | 2023-01-13 09:06 | PM.PNPUL ---
Progress Note: A&P Assessment and Plan (1) Acute exacerbation of chronic obstructive airways disease: Code(s): J44.1 - Chronic obstructive pulmonary disease with (acute) exacerbation Status: Acute Assessment and Plan: Gold grade 3 group B COPD Patient with 20 pack year tobacco use, currently smoking, FEV1 0.80 L, 46% predicted with air trapping, hyperinflation and decreased DLCO when corrected for alveolar volume, CT scan of chest on 12/12/2022 with severe apical greater than basilar panlobular emphysema, echo on 05/22/2021 with a PASP of 45, chronic hypoxemic respiratory failure using 4 L nasal cannula at rest, with ambulation it sleep, chronic hypercarbic respiratory failure with serum bicarbonate on 04/27/2000 07/13/2035, 38 on 11/02/2022 and greater than 40 on this admission. Patient presents 01/09/23 now with an acute exacerbation of COPD with 3 days history of shortness of breath, cough, wheezing with no change in phlegm production. Patient had an ABG of 7.32/90/160 on 5 L. she was treated with BiPAP 05/12 with a repeat blood gas of 7.41/70/87. 01/10/23: She says that she is overall improved and ready to come off the BiPAP and was placed on 4 L nasal cannula later in the day with saturations 100%. Her white blood cell count is 5.2, creatinine is 0.7, bicarb is greater than 40. She has no wheezing on exam. Plan: I will decrease her Solu-Medrol to 60 mg IV q.6. I will increase the frequency her of her ipratropium and levalbuterol nebulizers from Q 6 to q.[address] the patient on azithromycin 500 mg p.o. q.day for tracheobronchitis. Patient will wear her BiPAP p.r.n. for comfort and at night. Continue supplemental oxygen to maintain saturations 90-94%. I will obtain an echocardiogram to assess her LV function, valvular function and PA pressures. 01/11: Patient states she is breathing back to her baseline. She is now able to expectorate which is an improvement for her. She is currently on 4 L nasal with saturations 99% and I decreased her to 2 L and her saturations remain 96%. Plan: Solu-Medrol 20 IV q.6 changed to prednisone 40 q.day, day 3 of steroids. levalbuterol nebulizers discontinued as patient has severe shaking and tremors. Continue ipratropium 0.5 mg nebulized q.4 hours. Continue azithromycin 500 mg p.o. q.day, day 2. She reportedly has on 4 L nasal cannula at home but currently she is saturating well on 2 L nasal cannula with a goal saturation 90-94%. 01/12: Patient states her breathing is better. She has no shortness of breath at rest but does have dyspnea on exertion. She did sleep last night with the hospital noninvasive ventilator. Off the levalbuterol she says her tremors persist but are improved. She has no wheezing on exam. Currently she is on 1 L nasal cannula with saturations 97%. Plan: prednisone 40 q.day, day 4 of steroids. levalbuterol nebulizers discontinued 721 in no clinical change and tremors have improved. Change ipratropium 0.5 mg nebulized q.4 hours nebs to q.4 hours while awake.. Continue azithromycin 500 mg p.o. q.day, day 3. She reportedly has on 4 L nasal cannula at home but currently she is saturating well on 1L nasal cannula with a goal saturation 90-94%. 01/13: Patient states that she continues to improve. She had a hard time adjusting the hospital noninvasive ventilator last night but did sleep with the machine on. She denies wheezing. Her tremor is better on the perimeter down 25 b.i.d.. I was informed yesterday late in the day by Matias that her home machine is approved and they will attempt to set this up later today. Patient is currently on 2 L nasal cannula saturations 94%. Today is day 5 of steroids and I will discontinue. From a pulmonary perspective patient is ready to be discharged on these pulmonary medications: Trelegy 100-60 2.5-25 at 1 puff q.day Levalbuterol HFA inhaler 2 puffs Q 6 hours p.r.n. shortness of breath or wheezing Azithromycin 250 mg PO Q day X
--- NOTE | 2023-01-13 11:43 | HOMEO2EVAL ---
Evaluation was performed at [facility] Home Oxygen Evaluation RC: Home Oxygen (O2) Evaluation Start: 01/13/23 07:55 Freq: ONCE Status: Active Protocol: RPE Activity Type Activity Date Activity User E-sign Co-sign Detail Recorded Client Recorded Date Recorded By Document 01/13/23 11:15 MDW [email or web address] 01/13/23 11:42 MDW Document 01/13/23 11:16 MDW [email or web address] 01/13/23 11:42 MDW Document 01/13/23 11:17 MDW [email or web address] 01/13/23 11:42 MDW Document 01/13/23 11:17 MDW [email or web address] 01/13/23 11:42 MDW Document 01/13/23 11:41 MDW [email or web address] 01/13/23 11:42 MDW 01/13/23 01/13/23 01/13/23 11:15 11:16 11:17 Home O2 Evaluation [Oxygen] -Test Phase Resting Exercise Resting -Oxygen Delivery Nasal Cannula Nasal Cannula Nasal Cannula -Oxygen Flow Rate (L/min) 1 1 2 -Fraction of Inspired Oxygen (%) 24 24 28 [Pulse Oximetry] -Pulse Oximetry (90-100 %) 92 85 L 93 [Pulse Rate] -Pulse Rate (60-100 beats/min) 103 H 115 H 119 H [Evaluation] -Activity Tolerance Fair Fair -Rating of Perceived Dyspnea (PD) +1 Mild, +3 Moderate Noticeable to Difficulty, But the Participant Can Continue but Not to an Observer -Rate of Perceived Exertion (PE) 6 Very, very 13 Somewhat Query Text:Click the Protocol Button light Hard to View the RPE Scale [Exercise] -Ambulation Distance (feet) 20 -Ambulation Distance (meters) 6.09 [Comments] -Home Oxygen Evaluation Comments Due to low SPO2 increased Flow to 2L [Charges] -Treatment Charges O2 Evaluation - Inpatient 01/13/23 01/13/23 11:17 11:41 Home O2 Evaluation [Oxygen] -Test Phase Exercise Exercise -Oxygen Delivery Nasal Cannula Nasal Cannula -Oxygen Flow Rate (L/min) 2 3 -Fraction of Inspired Oxygen (%) 28 32 [Pulse Oximetry] -Pulse Oximetry (90-100 %) 86 L 94 [Pulse Rate] -Pulse Rate (60-100 beats/min) 129 H 125 H [Evaluation] -Activity Tolerance Fair Fair -Rating of Perceived Dyspnea (PD) +3 Moderate +3 Moderate Difficulty, But Difficulty, But Can Continue Can Continue -Rate of Perceived Exertion (PE) 13 Somewhat 11 Fairly light Query Text:Click the Protocol Button Hard to View the RPE Scale [Exercise] -Ambulation Distance (feet) 40 60 -Ambulation Distance (meters) 12.19 18.28 [Comments] -Home Oxygen Evaluation Comments Increased to 3L due to low SPO2 with activity. [Charges] -Treatment Charges
--- NOTE | 2023-01-13 11:44 | PCRCNOTE ---
Patient requires 1L at rest and 3L with activity for home evaluation.
--- NOTE | 2023-01-13 16:52 | WPDNEUROPN ---
Subjective Date/time seen: 01/13/23 16:52 Interval history: responded to the primidone 25 mg b.i.d. for the tremor extremely happy will recheck subsequently in the meantime no adjustment further adjust Objective Data Vital Signs Vital Signs: Vital Signs - 24 hr 01/12/23 20:00 01/12/23 20:52 01/12/23 20:54 Temperature Pulse Rate 94 84 89 Respiratory Rate 16 17 17 Blood Pressure Pulse Oximetry 99 94 Oxygen Delivery Nasal Cannula Nasal Cannula Oxygen Flow Rate 1 2 Fraction of Inspired Oxygen 28 28 01/12/23 21:53 01/12/23 23:29 01/12/23 20:59 Temperature 36.3 C L Pulse Rate 89 65 88 Respiratory Rate 18 16 17 Blood Pressure 112/96 H Pulse Oximetry 98 95 Oxygen Delivery BiPAP Oxygen Flow Rate Fraction of Inspired Oxygen 01/13/23 02:20 01/12/23 20:00 01/13/23 00:00 Temperature Pulse Rate 67 100 83 Respiratory Rate 15 Blood Pressure Pulse Oximetry 94 Oxygen Delivery BiPAP Oxygen Flow Rate Fraction of Inspired Oxygen 01/13/23 04:00 01/13/23 06:00 01/13/23 08:26 Temperature 36.1 C L Pulse Rate 78 66 70 Respiratory Rate 20 22 H Blood Pressure 125/56 L Pulse Oximetry 96 Oxygen Delivery Oxygen Flow Rate Fraction of Inspired Oxygen 01/13/23 09:58 01/13/23 08:36 01/13/23 08:20 Temperature Pulse Rate 70 75 80 Respiratory Rate 22 H 22 H Blood Pressure Pulse Oximetry 94 Oxygen Delivery Nasal Cannula Oxygen Flow Rate 2 Fraction of Inspired Oxygen 28 01/13/23 08:20 01/13/23 11:15 01/13/23 11:16 Temperature Pulse Rate 103 H 115 H Respiratory Rate Blood Pressure Pulse Oximetry 98 92 85 L Oxygen Delivery Nasal Cannula Nasal Cannula Nasal Cannula Oxygen Flow Rate 0.75 1 1 Fraction of Inspired Oxygen 24 24 01/13/23 11:17 01/13/23 11:17 01/13/23 11:41 Temperature Pulse Rate 119 H 129 H 125 H Respiratory Rate Blood Pressure Pulse Oximetry 93 86 L 94 Oxygen Delivery Nasal Cannula Nasal Cannula Nasal Cannula Oxygen Flow Rate 2 2 3 Fraction of Inspired Oxygen 28 28 32 01/13/23 12:00 01/13/23 13:06 01/13/23 14:00 Temperature 37.4 C Pulse Rate 107 H 100 99 Respiratory Rate 20 16 Blood Pressure 137/53 L Pulse Oximetry 97 Oxygen Delivery Oxygen Flow Rate Fraction of Inspired Oxygen 01/13/23 15:27 01/13/23 15:36 Temperature Pulse Rate 93 103 H Respiratory Rate 20 20 Blood Pressure Pulse Oximetry Oxygen Delivery Oxygen Flow Rate Fraction of Inspired Oxygen Intake/Output Intake/Output: Intake & Output 01/10/23 01/11/23 01/12/23 01/13/23 23:59 23:59 23:59 23:59 Intake Total 1080 1220 1430 1590 Output Total 1000 1125 200 Balance 80 95 1230 1590 Meds/Results Medications: Active Medications Generic Name Dose Route Start Last Admin Trade Name Freq PRN Reason Stop Dose Admin Acetaminophen 650 mg 01/09/23 20:31 Acetaminophen 325 Mg Tablet PO Q4H PRN Mild Pain (1-3) or Fever Azithromycin 500 mg 01/10/23 14:35 01/13/23 08:23 Azithromycin 250 Mg Tablet PO 500 mg DAILY [facility] Administration Ergocalciferol 50,000 units 01/14/23 09:00 Ergocalciferol 50,000 Units Capsule PO Mo@0900 [facility] Heparin Sodium (Porcine) 5,000 units 01/10/23 22:00 01/13/23 13:53 Heparin Sodium 5,000 Units/Ml Vial SUB-Q Not Given Q8HR [facility] Ipratropium [place] 0.5 mg 01/12/23 16:00 01/13/23 15:27 Ipratropium Br 0.02% Inh Soln 0.5 Mg/2.5 Ml Vial INHALATION 0.5 mg [id number] [facility] Administration Levalbuterol HCl 1.25 mg 01/10/23 09:00 Levalbuterol Neb 1.25 Mg/3 Ml INHALATION BID PRN Shortness Of Breath or wheezin Prednisone 40 mg 01/11/23 10:25 01/13/23 08:23 Prednisone 20 Mg Tablet PO 40 mg DAILY@0800 [facility] Administration Primidone 25 mg 01/12/23 17:00 01/13/23 08:23 Primidone 25 Mg Tablet PO 25 mg BID [facility] Administration Radiology Results: ITS Impressions Chest X-Ray 01/09/23 17:4
[2023-01-14] VITALS (9 sets, daily range): BP systolic 127; BP diastolic 61; PULSE 62–89; RESP 18–20; TEMP 35.9; O2SAT 95–100
--- NOTE | 2023-01-14 05:31 | PC.NURSE ---
pt refused both heparin SQ injections this shift, reeducated about the reasoning and proper dosage of q8hrs for heparin injection, pt refused and stated only takes one dose and refuses the others, re-educated on proper heparin dosing regimen and reasoning for multiple injections, pt continues to decline heparin Sq injections.
--- NOTE | 2023-01-14 06:38 | PC.NURSE ---
pt worn home vent last night tolerated well
[2023-01-14] MEDS: IPRATROPIUM BR 0.02% INH SOLN 0.5 MG/2.5 ML VIAL INHALATION ×2 (07:43→11:19)
--- NOTE | 2023-01-14 08:12 | PM.IMPN ---
Progress Note: A&P Assessment and Plan (1) Acute hypercapnic respiratory failure: Code(s): J96.02 - Acute respiratory failure with hypercapnia Status: Acute Assessment and Plan: Patient present with acute hypercapnic respiratory failure with a pCO2 above 90 days. She was started on noninvasive mechanical ventilation, patient need it during the night. Continue aggressive management with IV steroid, IV antibiotic, nebulization. Repeat ABG. Consult Pulmonary., patient nursing agency manager consultation, patient needs noninvasive mechanical ventilation at discharge Discontinue the Wellbutrin because of worsening hand tremor (2) Chronic respiratory failure: Qualifiers: Respiratory failure complication: hypoxia and hypercapnia Qualified Code(s): J96.11 - Chronic respiratory failure with hypoxia; J96.12 - Chronic respiratory failure with hypercapnia; J96.12 - Chronic respiratory failure with hypercapnia Code(s): J96.10 - Chronic respiratory failure, unspecified whether with hypoxia or hypercapnia Status: Acute Assessment and Plan: Patient is on chronic oxygen several relation at home 3 L per remitted. She had a chest CT from 2019 revealing severe emphysema. Unfortunately she continues to smoke. Pulmonary consult for further management. (3) Acute exacerbation of chronic obstructive airways disease: Code(s): J44.1 - Chronic obstructive pulmonary disease with (acute) exacerbation Status: Acute Assessment and Plan: Appreciate pulmonary consultation Per nursing agency manager, Received solu-Medrol 20 IV q.6 changed to prednisone . levalbuterol nebulizers discontinued as patient has severe shaking and tremors.? Continue ipratropium 0.5 mg nebulized q.4 hours.? Finished the treatment of azithromycin 500 mg today dc steroid yesterday Patient is on nasal cannula AVAPS? is approved Change to Xopenex 2 puffs q.6 hours as needed (4) Pulmonary hypertension: Code(s): I27.20 - Pulmonary hypertension, unspecified Status: Acute Assessment and Plan: Patient has documented mild pulmonary hypertension estimated pulmonary artery systolic pressure 45 mm of Hg as of May 22, 2021. (5) History of tobacco abuse: Code(s): Z87.891 - Personal history of nicotine dependence Status: Acute Assessment and Plan: Patient remains a chronic smoker half pack per daily visual plan to quit. Patient encouraged to stop smoking. Nicotine replacement therapy. (6) Respiratory failure with hypoxia and hypercapnia: Code(s): J96.91 - Respiratory failure, unspecified with hypoxia; J96.92 - Respiratory failure, unspecified with hypercapnia Status: Acute (7) Essential tremor: Code(s): G25.0 - Essential tremor Status: Acute Assessment and Plan: Worse in the central tremor, likely secondary to bronchodilators, discussed the case with Pulmonary, discontinue Xopenex nebulizer Also consult neurologist for evaluation treatment, neurologist considers not Parkinson disease, recommend start primidone 25 mg b.i.d. p.o. tremor is better controlled Continue primidone p.o. b.i.d at discharge Plan Patient is admitted as a new patient to service. Code status is full code. DVT prophylaxis with Lovenox patient is ready to be discharged today. the RNs and child care lead teacher of working on discharge Subjective Date/time seen: 01/14/23 08:12 Interval history: I saw the patient, patient has no new issue events or denied, patient tolerated noninvasive ventilator during the night, currently patient is on nasal cannula, patient denies chest pain, palpitation, focal weakness, tremors controlled Exam Narrative: GENERAL: Thin-appearing, well-nourished, and in no acute distress. Patient is tremulous.. HEAD: Normocephalic, atraumatic. EYES: PERRLA and EOMI. ENT: Nares clear, no rhinorrhea or epistaxis. Mucous membranes moist. NECK: Supple. CHEST: no wheezes to auscul
--- NOTE | 2023-01-14 08:17 | PM.DS ---
DS: Admitting Diagnosis Discharge Date Today Admitting Diagnosis Acute on chronic respiratory failure with hypercapnia and hypoxemia COPD exacerbation DS: Discharge Diagnosis Discharge Diagnosis (1) Acute exacerbation of chronic obstructive airways disease: Code(s): J44.1 - Chronic obstructive pulmonary disease with (acute) exacerbation Status: Acute (2) Acute hypercapnic respiratory failure: Code(s): J96.02 - Acute respiratory failure with hypercapnia Status: Acute (3) Essential tremor: Code(s): G25.0 - Essential tremor Status: Acute (4) Pulmonary hypertension: Code(s): I27.20 - Pulmonary hypertension, unspecified Status: Acute (5) Tobacco dependence: Code(s): F17.200 - Nicotine dependence, unspecified, uncomplicated Status: Acute DS: Summary Hospital Course Reason for hospitalization: Worsening shortness breast Hospital Course: Per H&P, patient is a 72-year-old female with a history of chronic active smoking, COPD who presents to Emergency Department with a chief complaint of shortness of breath.? Her the time of my evaluation, the patient is breathing on a CPAP machine.? History is gathered from chart review and ED notes.? Patient reports that she has history of COPD and reports that she still smokes a few cigarettes a day patient states that she been getting more more short of breath and also has noticed that she been little shaky.? Patient reports she has had a nonproductive cough reports no prior history of cardiac disease reports no prior history of congestive heart failure. Emergency department the patient had a temperature of 36.6? C, pulse rate 125, respiration 22, blood pressure 153/118, O2 saturation 98% on 4 L. her CBC shows a WBC of 7.2, hemoglobin 10.3, hematocrit 35.8 and platelet count to 2 7.? A serum chemistry shows a sodium of 142, potassium 3.8, chloride 91, bicarbonate 40, BUN 25, creatinine 0.6 and glucose 130.? ABG:? 7.31/90.7/160/45/98.? Urine is cloudy with 2+ protein 2+ blood negative L is 0-2 RBC, 0-5 WBC, rare bacteria.? Chest x-ray reveals interstitial pulmonary edema.? Emphysematous change. Patient was started on BiPAP with the following parameter: IPAP 14/EPAP 6/rate 18 with a FiO2 of 40%. The following medical issues have been addressed in the hospital (1) Acute hypercapnic respiratory failure: ?Code(s): J96.02 - Acute respiratory failure with hypercapnia ?Status:?Acute ?Assessment and Plan: Patient present with acute hypercapnic respiratory failure with a pCO2 above 90 days. ? She was started on noninvasive mechanical ventilation, patient need it during the night.? Continue aggressive management with IV steroid, IV antibiotic, nebulization.? Repeat ABG.? Appreciate pulmonology is consultation patient needs noninvasive mechanical ventilation at discharge per [employer] and [employer] operator evaluation Discontinue the Wellbutrin because of worsening hand tremor (2) Chronic respiratory failure: ?Qualifiers: ?Respiratory failure complication:?hypoxia and hypercapnia? Qualified Code(s):?J96.11 - Chronic respiratory failure with hypoxia; J96.12 - Chronic respiratory failure with hypercapnia; J96.12 - Chronic respiratory failure with hypercapnia ?Code(s): J96.10 - Chronic respiratory failure, unspecified whether with hypoxia or hypercapnia ?Status:?Acute ?Assessment and Plan: Patient is on chronic oxygen several relation at home 3 L per remitted.? She had a chest CT from 2020 revealing severe emphysema.? Unfortunately she continues to smoke.? Pulmonary consult for further management. (3) Acute exacerbation of chronic obstructive airways disease: ?Code(s): J44.1 - Chronic obstructive pulmonary disease with (acute) exacerbation ?Status:?Acute ?Assessment and Plan: Appreciate pulmonary consultation Per [employer]ce and shave press operator, Received solu-Medrol 20 IV q.6 changed to prednisone . levalbuterol nebulizers discontinued as pa
--- NOTE | 2023-01-14 09:23 | PM.PNPUL ---
Progress Note: A&P Assessment and Plan (1) Acute exacerbation of chronic obstructive airways disease: Code(s): J44.1 - Chronic obstructive pulmonary disease with (acute) exacerbation Status: Acute Assessment and Plan: Gold grade 3 group B COPD Patient with 20 pack year tobacco use, currently smoking, FEV1 0.80 L, 46% predicted with air trapping, hyperinflation and decreased DLCO when corrected for alveolar volume, CT scan of chest on 12/12/2022 with severe apical greater than basilar panlobular emphysema, echo on 05/22/2021 with a PASP of 45, chronic hypoxemic respiratory failure using 4 L nasal cannula at rest, with ambulation it sleep, chronic hypercarbic respiratory failure with serum bicarbonate on 04/27/2000 07/13/2035, 38 on 11/02/2022 and greater than 40 on this admission. Patient presents 01/09/23 now with an acute exacerbation of COPD with 3 days history of shortness of breath, cough, wheezing with no change in phlegm production. Patient had an ABG of 7.32/90/160 on 5 L. she was treated with BiPAP 05/12 with a repeat blood gas of 7.41/70/87. 01/10/23: She says that she is overall improved and ready to come off the BiPAP and was placed on 4 L nasal cannula later in the day with saturations 100%. Her white blood cell count is 5.2, creatinine is 0.7, bicarb is greater than 40. She has no wheezing on exam. Plan: I will decrease her Solu-Medrol to 60 mg IV q.6. I will increase the frequency her of her ipratropium and levalbuterol nebulizers from Q 6 to q.[address] the patient on azithromycin 500 mg p.o. q.day for tracheobronchitis. Patient will wear her BiPAP p.r.n. for comfort and at night. Continue supplemental oxygen to maintain saturations 90-94%. I will obtain an echocardiogram to assess her LV function, valvular function and PA pressures. 01/11: Patient states she is breathing back to her baseline. She is now able to expectorate which is an improvement for her. She is currently on 4 L nasal with saturations 99% and I decreased her to 2 L and her saturations remain 96%. Plan: Solu-Medrol 20 IV q.6 changed to prednisone 40 q.day, day 3 of steroids. levalbuterol nebulizers discontinued as patient has severe shaking and tremors. Continue ipratropium 0.5 mg nebulized q.4 hours. Continue azithromycin 500 mg p.o. q.day, day 2. She reportedly has on 4 L nasal cannula at home but currently she is saturating well on 2 L nasal cannula with a goal saturation 90-94%. 01/12: Patient states her breathing is better. She has no shortness of breath at rest but does have dyspnea on exertion. She did sleep last night with the hospital noninvasive ventilator. Off the levalbuterol she says her tremors persist but are improved. She has no wheezing on exam. Currently she is on 1 L nasal cannula with saturations 97%. Plan: prednisone 40 q.day, day 4 of steroids. levalbuterol nebulizers discontinued 721 in no clinical change and tremors have improved. Change ipratropium 0.5 mg nebulized q.4 hours nebs to q.4 hours while awake.. Continue azithromycin 500 mg p.o. q.day, day 3. She reportedly has on 4 L nasal cannula at home but currently she is saturating well on 1L nasal cannula with a goal saturation 90-94%. 01/13: Patient states that she continues to improve. She had a hard time adjusting the hospital noninvasive ventilator last night but did sleep with the machine on. She denies wheezing. Her tremor is better on the perimeter down 25 b.i.d.. I was informed yesterday late in the day by Matias that her home machine is approved and they will attempt to set this up later today. Patient is currently on 2 L nasal cannula saturations 94%. Today is day 5 of steroids and I will discontinue. 01/14 patient wore her home noninvasive ventilator overnight and was able to get some sleep. Overall her breathing is at her baseline. Patient on 1 L nasal cannula saturation 95%. From a pulmonary perspective patient is ready to be discharged on
[2023-01-14] MEDS: predniSONE 20 MG TABLET 40 MG PO (09:24)
[2023-01-14] MEDS: AZITHROMYCIN 250 MG TABLET 500 MG PO (09:24)
[2023-01-14] MEDS: PRIMIDONE 25 MG TABLET PO (09:24)
[2023-01-14] MEDS: ERGOCALCIFEROL 50,000 UNITS CAPSULE 50000 UNITS PO (09:24)
[2023-01-15 09:12] LABS: Alpha-1-Antitrypsin, QN 201 mg/dL (83-199)
== END 2023-01-14 13:27 | disposition home or self-care (01) | DRG 189 ==
LOC: ANHED 20:36 → ANHIMU 21:10 → ANH3MEDSUR 01-11 18:21
PROVIDERS: Emergency Medicine; Internal Medicine Pulmonary Disease; Admitting Provider Internal Medicine; Emergency Provider Emergency Medicine; PCP Family Medicine; Visit Provider Hospitalist
DX: J96.21 Acute and chronic respiratory failure with hypoxia (principal); J44.1 Chronic obstructive pulmonary disease with (acute) exacerbation; J96.22 Acute and chronic respiratory failure with hypercapnia; G25.0 Essential tremor; T48.6X5A Adverse effect of antiasthmatics, initial encounter; I27.20 Pulmonary hypertension, unspecified; R91.1 Solitary pulmonary nodule; H35.30 Unspecified macular degeneration; I73.00 Raynaud's syndrome without gangrene; M15.9 Polyosteoarthritis, unspecified; F17.210 Nicotine dependence, cigarettes, uncomplicated; Z98.42 Cataract extraction status, left eye; Z98.41 Cataract extraction status, right eye; Z99.81 Dependence on supplemental oxygen
CPT/HCPCS: 36415; 36600; 71046; 80048; 80053; 81001; 82103; 82104; 82375; 82805; 83050; 83605; 83735; 83880; 84145; 84484; 85025; 93005; 94002; 94003; 94618; 94640; 94762; 96374; 96375; 97161; 97165; 97530; 97535; 99291; A9270; C8929; J0696; J1644; J1940; J2060; J2920; J2930; J7512; Q9957

== ENCOUNTER 2023-03-14 10:14 | Outpatient (CLI) | payer OTHER, SELFPAY ==
--- NOTE | 2023-03-14 13:56 | WPDPFTINT ---
PFT Procedure Performed PFT Procedure Performed Spirometry with Pre/Post Bronchodilator Plethysmography (Lung Vol) Diffusing Cap (DLCO) Flow Vol Loop PFT Interpretation This is a pulmonary function test with pre and post-bronchodilator spirometry, plethysmography and diffusing capacity. The test was performed and results interpreted in accordance with the 2019 and 2005 ATS/ERS Task Force guidelines respectively using the Global Lung Function Initiative-2012 reference equations. Patient demonstrated good effort and cooperation. Reproducibility criteria were met. The quality of the pre bronchodilator spirometry maneuver was Grade B and post bronchodilator spirometry maneuver was Grade B. Findings: Spirometry: There is decreased maximal expiratory airflow at all lung volumes with concave expiratory flow tracing. The contour the inspiratory flow tracing is normal. The pre bronchodilator FVC is 1.52 L, 63% predicted. The pre bronchodilator FEV1 is 0.62 L, 33% predicted. The pre bronchodilator FEV1: FVC ratio is 41%. The post bronchodilator FVC is 1.50 L, representing a 1% decrease. The post bronchodilator FEV1 is 0.64 L, representing a 4% increase. The post bronchodilator FEV1: FVC ratio is 43%. Plethysmography: The total lung capacity is 4.57 L, 103% predicted. The functional residual capacity is 3.45 L, 138% predicted. The residual volume is 2.74 L, 137% predicted. Diffusing capacity: The diffusing capacity unadjusted for hemoglobin and carboxyhemoglobin is 5.0, 27% predicted. The diffusing capacity adjusted for alveolar volume is 2.29, 51% predicted. In comparison to previous pulmonary function testing on 10/13/2019 the post bronchodilator FVC has decreased from 1.93 L to 1.50 L. The post bronchodilator FEV1 is decreased from 0.78 L to 0.46 L. The total lung capacity has decreased from 6.72 L to 4.57 L. The functional residual capacity is decreased from 5.63 L to 3.45 L. The residual volume is decreased from 4.83 L to 2.74 L. The diffusing capacity unadjusted for hemoglobin and carboxyhemoglobin is decreased from 6.8 to 5.0. The diffusing capacity adjusted for alveolar volume is unchanged from 2.22 to 2.29. Impression: There is a very severe obstructive abnormality without significant improvement after inhaling a single dose of albuterol. The lung volumes are normal. The diffusing capacity unadjusted for hemoglobin and carboxyhemoglobin is severely decreased and remains moderately decreased when adjusted for alveolar volume. In comparison to previous pulmonary function testing on 10/13/2019 there has been a greater than anticipated time dependent decrease in the FVC, FEV1, total lung capacity, functional residual capacity, residual volume and diffusing capacity unadjusted for hemoglobin and carboxyhemoglobin with no significant change in the diffusing capacity adjusted for alveolar volume. Clinical correlation is recommended.
== END 2023-03-14 10:15 | disposition home or self-care (01) ==
LOC: ANHPFT 10:14
PROVIDERS: PCP Family Medicine; Visit Provider Internal Medicine Pulmonary Disease
DX: J44.9 Chronic obstructive pulmonary disease, unspecified (principal); R94.2 Abnormal results of pulmonary function studies
CPT/HCPCS: 94060; 94726; 94729

== ENCOUNTER 2023-04-04 13:04 | Outpatient (CLI) | payer OTHER, SELFPAY ==
--- NOTE | ~2023-04-04 | CT_ITS ---
CT Scan of the Chest without Contrast: Clinical Indication: Solitary pulmonary nodule Technique: Contiguous sections were acquired throughout the chest without intravenous contrast. Dose reduction technique was used on this scan by utilizing automated exposure control and iterative recon struction technique. The dose-length product (DLP) was 57.93 mGy-cm. COMPARISON: 12/11/2022, 08/24/2021 Findings: There is no evidence of any significant mediastinal, hilar or axillary lymphadenopathy. The mediastin al soft tissues appear normal. There is no evidence of pleural or pericardial effusion. Severe emphysema present. 5 mm right apical pulmonary nodule is similar to prior exams. 8 mm left upp er lobe/apical pulmonary nodule is unchanged. 7 mm right upper lobe pulmonary nodule is unchanged fro m most recent prior exam. There is mild scarring at the lingula and right middle lobe. Images through the upper abdomen reveal no abnormalities. Impression: Stable 7 mm right upper lobe pulmonary nodule, indeterminate. Continued imaging follow-up recommended in light of findings on prior PET/CT. Recommend follow-up CT in 6 months. Stable 8 mm left upper lobe pulmonary nodule. Severe emphysema. Reviewed, dictated and finalized at [facility]. Impression: Stable 7 mm right upper lobe pulmonary nodule, indeterminate. Continued imaging follow-up recommended in light of findings on prior PET/CT. Recommend follow-u p CT in 6 months. Stable 8 mm left upper lobe pulmonary nodule. Severe emphysema.
== END 2023-04-04 13:05 | disposition home or self-care (01) ==
PROVIDERS: PCP Family Medicine; Visit Provider Internal Medicine Pulmonary Disease
DX: R91.1 Solitary pulmonary nodule (principal); J43.9 Emphysema, unspecified
CPT/HCPCS: 71250

== ENCOUNTER 2023-10-04 12:32 | Outpatient (CLI) | payer OTHER, SELFPAY ==
--- NOTE | ~2023-10-04 | CT_ITS ---
EXAMINATION: CT diagnostic chest wo con DATE: 10/04/2023 12:56 INDICATION: Pulmonary nodule follow-up TECHNIQUE: Computed tomography (CT) of the chest was performed without intravenous contrast. Automate d exposure control and iterative reconstruction technique were employed. Exam dose: 65.49 mGy-cm tot al exam DLP. COMPARISON: 04/04/2023 CT chest 01/03/[address] scan 12/12/2022 CT lung screening examination is not available from the archive at this time FINDINGS: Stable approximately 5 x 6.4 mm nodular density, right upper lobe, compared to 04/04/2023. Stable approximately 4.5 mm superior segment right lower lobe pulmonary nodule and stable calcificati on in the medial aspect of the superior segment of the right lower lobe since 04/04/2023. Stable approximately 8 mm posterior segment left upper lobe pulmonary nodular density compared to 05/2023. Severe emphysematous changes are again noted. No hilar or mediastinal mass lesion or lymphadenopathy is evident. No thoracic aortic aneurysm. There is thoracic aortic and great vessel calcification. Normal heart si ze. No pericardial or pleural effusion. Small sliding hiatal hernia. Normal morphology of the adrenal glands. Approximately 1.2-1.8 cm left hepatic probable cysts are suggested, not definitely changed since 03/24. These are not optimally evaluated on this limited noncontrast CT chest examination IMPRESSION: Stable right upper lobe and left upper lobe lung masses since 04/04/2023; continued [address] follow-up is recommended Severe emphysema Reviewed, dictated and finalized at [facility]. Reviewed, dictated and finalized at [facility]. IMPRESSION: Stable right upper lobe and left upper lobe lung masses since 03/24; continued [address] follow-up is recommended Severe emphysema
== END 2023-10-04 12:33 | disposition home or self-care (01) ==
LOC: ANHIMG 12:33
PROVIDERS: PCP Family Medicine; Visit Provider Internal Medicine Pulmonary Disease
DX: R91.1 Solitary pulmonary nodule (principal); J43.9 Emphysema, unspecified
CPT/HCPCS: 71250

== ENCOUNTER 2024-02-18 02:06 | Day surgery (SDC) | payer OTHER, SELFPAY ==
[2024-01-29 14:08] VITALS: BMI 28.0
[2024-02-18 08:07] VITALS: BP 139/60; PULSE 85; RESP 24; TEMP 36.1; O2SAT 98
[2024-02-18] MEDS: LACTATED RINGERS 1,000 ML 150 ML IV CONT (08:18)
--- NOTE | 2024-02-18 09:00 | WPDANESEPPF ---
Anes - Initial Pre Proc Eval Procedure: Operation Date: 02/18/24 09:30 Proposed Procedures p Colonoscopy - Héctor Goldsmith MD Date/Time: 02/18/24 09:00 Surgeon: Héctor Goldsmith MD Pre Op Diagnosis: colon polyp Patient Data Age: 73 Gender: F Height: 1.52 m Weight: 62.3 kg Last Vital Signs Temp 96.9 F L 02/18/24 08:07 Pulse 85 02/18/24 08:07 Resp 24 H 02/18/24 08:07 BP 139/60 02/18/24 08:07 Pulse Ox 98 02/18/24 08:07 O2 Del Method Room Air 02/18/24 08:07 Allergies Allergy/AdvReac Type Severity Reaction Status Date / Time Androgenic Anabolic Steroid AdvReac Severe tremor Verified 02/18/24 08:04 Home Medications Medication Instructions Recorded Confirmed Type levalbuterol tartrate 45 2 inh inhalation Q6H PRN shortness 01/15/23 02/18/24 Rx mcg/actuation aerosol inhaler of breath or wheezing #15 grams (Xopenex HFA) ferrous sulfate 325 mg (65 mg See Rx Instructions .Route 09/24/23 02/18/24 Rx iron) tablet .COMPLEX #90 tabs rosuvastatin 5 mg tablet See Rx Instructions .Route 09/24/23 02/18/24 Rx .COMPLEX #90 tabs alendronate 70 mg tablet See Rx Instructions .Route 10/09/23 02/18/24 Rx .COMPLEX #12 tabs fluticasone fur. 100 mcg-umeclid 1 inh inhalation DAILY #60 ea 11/26/23 02/18/24 Rx 62.5 mcg-vilant 25 mcg inhalat.powder (Trelegy Ellipta) cholecalciferol (vitamin D3) 1,250 See Rx Instructions .Route 01/27/24 02/18/24 Rx mcg (50,000 unit) capsule .COMPLEX #12 caps primidone 50 mg tablet See Rx Instructions .Route 01/27/24 02/18/24 Rx .COMPLEX #180 tabs celecoxib 200 mg capsule See Rx Instructions .Route 02/17/24 02/18/24 Rx .COMPLEX #30 caps Patient hx anesthesia problems: none Family hx anesthesia problems: none Results Review: All pre-operative results and documents have been reviewed as part of the pre-operative evaluation. [facility] Past Medical History Medical History (Updated 12/16/23 @ 16:37 by Suzi Burton MD) Acute maxillary sinusitis Adenomatous polyp of sigmoid colon GLO positive Breast screening Chronic respiratory failure with hypoxia Colon cancer screening Colon polyps Elevated fasting glucose Emphysema lung Encounter for medication management Generalized osteoarthritis of multiple sites Hypoxemia Hypoxemia Lipid screening Living will, counseling/discussion Macular degeneration Nicotine abuse Pulmonary hypertension Pulmonary hypertension Raynaud disease Raynaud phenomenon Tobacco dependence Uterine fibroid Surgical History Surgical History S/P hysterectomy with oophorectomy Status post bilateral cataract extraction Family History Family History Father Diabetes mellitus Hypertension Malignant neoplasm of prostate Family history of malignant neoplasm of kidney Mother Diabetes mellitus Hypertension Family history of cardiovascular disease Social History Social History (Updated 11/26/23 @ 13:37 by Sada Mcdermott) Social History: Smoking packs per day: 1 Smoking cigarettes per day: 20.0 Years smoked: 30 Smoking pack-years: 30.00 Smoking status: Former smoker Tobacco type: cigarettes Second hand tobacco smoke exposure: Yes Smoking end date: 01/08/23 Additional smoking assessment comments: smokes 3 cigarettes Alcohol intake: never Substance use: never Substance use type: does not use Do You Feel Safe in your Home?: Yes Lack of Transportation: No Lack of Food: Never True Current Housing: I Have Housing Concerned About Future Housing: No Difficulty Paying Gas/Electric Bills: No Difficulty Paying for Meds: No Currently Unemployed: YES Education: High School Diploma/GED Difficulty w/ Childcare or Family Care: No Living arrangements: with family Additional living arrangements comments: DAUGHTER AND SON IN LAW LIVE W
--- NOTE | 2024-02-18 09:05 | PM.HPGS ---
History of Present Illness History of Present Illness Consent: Risks, benefits, and alternatives have been discussed and questions answered. Patient agrees to proceed with procedure. Chief complaint: colon polyp Narrative: Hazel Owens is a 73 year old female with colon polyps in 2021 Review of Systems Review of Systems: All systems reviewed & are unremarkable except as noted in HPI and below PMFSH Past Medical History Medical History (Updated 12/16/23 @ 16:37 by Suzi Burton MD) Acute maxillary sinusitis Adenomatous polyp of sigmoid colon GLO positive Breast screening Chronic respiratory failure with hypoxia Colon cancer screening Colon polyps Elevated fasting glucose Emphysema lung Encounter for medication management Generalized osteoarthritis of multiple sites Hypoxemia Hypoxemia Lipid screening Living will, counseling/discussion Macular degeneration Nicotine abuse Pulmonary hypertension Pulmonary hypertension Raynaud disease Raynaud phenomenon Tobacco dependence Uterine fibroid Surgical History Surgical History S/P hysterectomy with oophorectomy Status post bilateral cataract extraction Family History Family History Father Diabetes mellitus Hypertension Malignant neoplasm of prostate Family history of malignant neoplasm of kidney Mother Diabetes mellitus Hypertension Family history of cardiovascular disease Social History Social History (Updated 11/26/23 @ 13:37 by Sada Mcdermott) Social History: Smoking packs per day: 1 Smoking cigarettes per day: 20.0 Years smoked: 30 Smoking pack-years: 30.00 Smoking status: Former smoker Tobacco type: cigarettes Second hand tobacco smoke exposure: Yes Smoking end date: 01/08/23 Additional smoking assessment comments: smokes 3 cigarettes Alcohol intake: never Substance use: never Substance use type: does not use Do You Feel Safe in your Home?: Yes Lack of Transportation: No Lack of Food: Never True Current Housing: I Have Housing Concerned About Future Housing: No Difficulty Paying Gas/Electric Bills: No Difficulty Paying for Meds: No Currently Unemployed: YES Education: High School Diploma/GED Difficulty w/ Childcare or Family Care: No Living arrangements: with family Additional living arrangements comments: DAUGHTER AND SON IN LAW LIVE WITH PT Occupation/Education: retired Gender identity (if verbalized by the patient): Female Sexual Orientation (if Verbalized by the Patient): Straight or Heterosexual Spiritual care concerns: No Meds Home Medications and Allergies Home Medications Medication Instructions Recorded Confirmed Type levalbuterol tartrate 45 2 inh inhalation Q6H PRN shortness 01/15/23 02/18/24 Rx mcg/actuation aerosol inhaler of breath or wheezing #15 grams (Xopenex HFA) ferrous sulfate 325 mg (65 mg See Rx Instructions .Route 09/24/23 02/18/24 Rx iron) tablet .COMPLEX #90 tabs rosuvastatin 5 mg tablet See Rx Instructions .Route 09/24/23 02/18/24 Rx .COMPLEX #90 tabs alendronate 70 mg tablet See Rx Instructions .Route 10/09/23 02/18/24 Rx .COMPLEX #12 tabs fluticasone fur. 100 mcg-umeclid 1 inh inhalation DAILY #60 ea 11/26/23 02/18/24 Rx 62.5 mcg-vilant 25 mcg inhalat.powder (Trelegy Ellipta) cholecalciferol (vitamin D3) 1,250 See Rx Instructions .Route 01/27/24 02/18/24 Rx mcg (50,000 unit) capsule .COMPLEX #12 caps primidone 50 mg tablet See Rx Instructions .Route 01/27/24 02/18/24 Rx .COMPLEX #180 tabs celecoxib 200 mg capsule See Rx Instructions .Route 02/17/24 02/18/24 Rx .COMPLEX #30 caps Allergies Allergy/AdvReac Type Severity Reaction Status Date / Time Androgenic Anabolic Steroid AdvReac Severe tremor Verified 02/18/24 08:04 Vital Signs Vital Signs - 24 hr 02/18/24 08:07 Temperature 96
[2024-02-18 09:36] VITALS: BP 126/42; PULSE 88; RESP 19; O2SAT 100
[2024-02-18 09:46] VITALS: BP 123/51; PULSE 75; RESP 14; O2SAT 100
[2024-02-18 09:56] VITALS: BP 116/70; PULSE 70; RESP 15; O2SAT 97
== END 2024-02-18 10:06 | disposition home or self-care (01) ==
PROVIDERS: PCP Family Medicine; Referring Provider Physician Assistant; Visit Provider Internal Medicine Gastroenterology
PROC: 0DJD8ZZ Inspection of Lower Intestinal Tract, Via Natural or Artificial Opening Endoscopic (ICD-10-PCS; CPT 45378; principal; 2024-02-18 09:30)
DX: Z12.11 Encounter for screening for malignant neoplasm of colon (principal); D12.2 Benign neoplasm of ascending colon; D12.3 Benign neoplasm of transverse colon; D12.4 Benign neoplasm of descending colon; K63.5 Polyp of colon; K64.8 Other hemorrhoids; K57.30 Diverticulosis of large intestine without perforation or abscess without bleeding; J96.11 Chronic respiratory failure with hypoxia; J43.9 Emphysema, unspecified; M15.9 Polyosteoarthritis, unspecified; I27.20 Pulmonary hypertension, unspecified; Z79.51 Long term (current) use of inhaled steroids; Z79.83 Long term (current) use of bisphosphonates; Z98.890 Other specified postprocedural states; Z87.891 Personal history of nicotine dependence; Z80.42 Family history of malignant neoplasm of prostate; Z80.51 Family history of malignant neoplasm of kidney; Z82.49 Family history of ischemic heart disease and other diseases of the circulatory system
CPT/HCPCS: 45385; 88305; J2001; J2704; J7120

== ENCOUNTER 2024-04-13 12:19 | Outpatient (CLI) | payer OTHER, SELFPAY ==
--- NOTE | ~2024-04-13 | CT_ITS ---
CT Scan of the Chest without Contrast: Clinical Indication: Pulmonary nodule Technique: Contiguous sections were acquired throughout the chest without intravenous contrast. Dose reduction technique was used on this scan by utilizing automated exposure control and iterative recon struction technique. The dose-length product (DLP) was 71.64 mGy-cm. COMPARISON: 10/04/2023 Findings: There is no evidence of any significant mediastinal, hilar or axillary lymphadenopathy. The mediastin al soft tissues appear normal. There is no evidence of pleural or pericardial effusion. Severe emphysema present. Stable 7 mm left upper lobe pulmonary nodule (axial image 23). Stable 4 mm right apical pulmonary nodule (axial image 18). Stable 7 mm right upper lobe pulmonary nodule (axial image 41). Stable probable chronic atelectasis or scarring at the lingula. Images through the upper abdomen reveal no abnormalities. Impression: Stable pulmonary nodules, as detailed above. Severe emphysema. Reviewed, dictated and finalized at [facility]. Impression: Stable pulmonary nodules, as detailed above. Severe emphysema.
== END 2024-04-13 12:20 | disposition home or self-care (01) ==
PROVIDERS: PCP Family Medicine; Visit Provider Internal Medicine Pulmonary Disease
DX: J43.9 Emphysema, unspecified (principal); R91.8 Other nonspecific abnormal finding of lung field
CPT/HCPCS: 71250

== ENCOUNTER 2024-12-08 10:27 | Outpatient (CLI) | payer OTHER, SELFPAY ==
--- NOTE | ~2024-12-08 | CT_ITS ---
CT Scan of the Chest without Contrast: Clinical Indication: Pulmonary nodule Technique: Contiguous sections were acquired throughout the chest without intravenous contrast. Dose reduction technique was used on this scan by utilizing automated exposure control and iterative recon struction technique. The dose-length product (DLP) was 72.35 mGy-cm. COMPARISON: 04/13/2024 Findings: There is no evidence of any significant mediastinal, hilar or axillary lymphadenopathy. The mediastin al soft tissues appear normal. There is no evidence of pleural or pericardial effusion. Stable right apical scarring. Stable 7 mm left upper lobe pulmonary nodule present (axial image 25). Stable 5 mm right upper lobe pulmonary nodule (axial image 45). Stable 3 mm right lower lobe pulmonar y nodule (axial image 59). Advanced emphysema present. Images through the upper abdomen reveal severe fatty atrophy of the pancreas. Impression: Stable subcentimeter pulmonary nodules, as above, largest measuring 7 mm in the left upper lobe. Advanced emphysema. Reviewed, dictated and finalized at location . Impression: Stable subcentimeter pulmonary nodules, as above, largest measuring 7 mm in the left upper lobe. Advanced emphysema.
--- OUTSIDE RECORDS SUMMARY | 2024-12-08 11:38 | XMS_ITS | Continuity of Care Document ---
Author Organization [facility] Address [address] [place] [address] [place] [address] Phone Care Team Providers Care Pattern Changer And Repairer Name Role Phone Candido Jaimes Unavailable Unavailable Procedures Procedure Date Eye Exam, New Patient Advance Directives Directive Yes / No Effective Date File Name No Information Encounters Encounter Description Practice Location Reason(s) For Visit Diagnoses Date Provider Providers Copied on Encounter [facility], [address] [place] [address] [address], [place], [place], [id number], [place] tel:[phone] [facility] No Information [address] [facility] [address], [place], [facility], [place]. tel:[phone] Referring Provider: Harjinder Holman, [address] [place], [place], [facility]. tel:[phone] Family History Family Member Type Diagnosis Age At Onset No Information Payers Payer name Insurance type Covered libertarian ID Authorcristya jacqueline(s) [facility] CI [id number] Social History Type Description Quantity Date Captured Comments Sex Female Smoking Status No Information Chief Complaint And Reason For Visit No Information Reason For Referral Reason For Referral No Information History Of Present Illness Encounter Date Complaint History Of Prese nt Illness No Information Functional Status Date Functional Assessmen t No Information Instructions Date Instruction Additional Infor mation No Information Assessments Type Assessment Date No Information Patient Care Teams Name Effective Dates (start - stop) Status Members No Information
--- OUTSIDE RECORDS SUMMARY | 2024-12-08 11:38 | XMS_ITS ---
Author Name Madina CATES MRS. Carpio npal Address [address] [facility] [place] [address] Phone [phone] Organization [facility] ([facility]) Care Team Providers Care Van Driver Name Role Phone Octavia Painter Unavailable [phone] MACEY GAFFNEY Unavailable [phone] Suzi Burton Unavailable [phone] Reason for Referral Not Available Allergies, adverse reactions, alerts Allergen Type Reaction Severity Status Onset Date Albuterol Allergy to substance (disorder) HR increase, tremors Unknown Active N/A History of medication use Medication Class Instructions Start Date End Date Alendronate Sodium 70 mg Tab 1 tablet or ally weekly 30 minutes before the first food, beverage or medicine of the day with plain water 2024-05-19 No Data Available Vitamin D3 Ultra Potency 1250 MCG Tab 1 tablet orally weekly 2024-05-19 No Data Available Trelegy Ellipta 100-62.5-25 MCG/ACT Aerosol Powder Breath Activated Inhalation 1 puff inhaled orally daily 2024-05-19 No D angelo Available Rosuvastatin Calcium 5 mg Tab 1 tablet orally daily 2024-05-19 No Data Available Celecoxib 200 mg Cap 1 capsule orally daily 2024-05-19 No Data Available Albuterol Sulfate HFA 108 (90 Base) MCG/ACT Aerosol Solution Inhalation INHALE 2 PUFFS BY MOUTH EVERY 6 HOURS NEEDED FOR WHEEZING OR SHORTNESS OF BREATH 2024-05-19 No Data Available Biotin 5000 MCG Cap 1 capsule orally daily 2024-05-19 No Data Available Primidone 50 mg Tab 1 tablet orally 2 ti mes per day 2024-05-19 No Data Available Problem List Problem Status Onset Date Resolved Date Synopsis Oxygen dependent Active 2024-05-22 N/A N/A COPD (chronic obstructive pulmonary disease) Active 17-05-29 N/A N/A HLD (hyperlipidemia) Active 2024-05-22 N/A N/A Osteoporosis Active 2024-05-22 N/A N/A Polyosteoarthritis Active 2024-05-22 N/A N/A Encounters Encounters Type Facility Date of Service Diagnosis/Co mplaint Home visit for evaluation and management of new patient requiring medically appropriate examination and moderate level of medical decision making. If using time, at least 60 minutes total time on enco [facility] [place] 05/19/2024 Chronic obstructive pulmonary disease, unspecifiedHyperlipidemia, unspecifiedAge-related osteoporosis without current pathological fracturePolyosteoarthritis, unspecifiedDependence on supplemental oxygenBody mass index (bmi) 26.0-26.9, adult Vital Signs Date of Collection Vitals 2024-05-19 14:12:00 Height - 152.4 cmWei ght - 62.14 kgBody Mass Index (BMI) - 26.76 kg/m2BP Diastolic - 78.0 mm[Hg]BP Systolic - 140.0 mm[Hg]Heart Rate - 83.0 /minRespiratory Rate - 16.0 /minBody Temperature - 37.78 CelO2 % BldC Oximetry - 97.0 % Social History Social History Social History Observation Description Effec tive Time Current Smoking Status Former smoker 2024-11-22 7 Sex Female History of Procedures Procedures Service Procedure code Service date Servicing provider Phone# Home visit for evaluation and management of new patient requiring medically appropriate examination and moderate level of medical decision making. If using time, at least 60 [place] enco [id number] 2024-05-19 No Data Available No Data Availa ble Functional Status Functional Category Effective Dates still drives 2024-05-19 daughter lives with her 2024-05-19 Mental Status No Information Assessments Date of Service Assessments 2024-05-19 14:12:00 COPD (chronic obstru ctive pulmonary disease)HLD (hyperlipidemia)OsteoporosisPolyosteoarthritisOxygen dependent Plan of Care Date of Service Plans 2024-05-19 14:12:00 Dr Gaffney - follow u ps Q3-6 months, due to see 06/18/2025PCP is retiring - will be seeing the NPchronic; stableoxygen dependentAdvised using Trelegy inhaler daily and educated on the inhalercontinue Trelegy inhaler and using IVAP at bedtimecontinue pulmonary follow up Q3 monthsstablecontinue rosuvastatin dailyheart healthy dietchroniccontinue alendronate weekly and vitamin D3 dailybone density scan 4chronic; stablecontinue celecoxib dailysee #1 Goals Date Goal 2024-05-19 Advised using Treleg y daily Health Concerns Date Concern 2024-05-19 [facility] Call[facility] is a service that involves a physician or advanced practice provider conducting comprehensive assessments in your patient s home or virtually to address crucial areas such as chronic conditions, quality gaps, social concerns, fall risk prevention, and various screenings. Please note that your patient will remain attributed to you even though they are participating in this service. If you have any questions, please reach out directly to our team at the phone number above.Your patient, Hazel Owens, 1950, was seen today for a Healthy House Call visit. Patient read rights and responsibilities and consented to treatment. The purpose of this summary is to update you on the patient's current health status and share any relevant findings from the examination. 2024-05-19 Wears home oxygen 1 lpm at rest, 3 lpm with ambulation. Will be on oxygen for 5 years in 09/2024. Will be getting portable oxygen in September. Gets samples of Trelegy otherwise $39 a month. 2024-05-19 COPD - She uses the Trelegy inhaler PRN when she has chest tightness or wheezing or dyspnea. She does not use her Albuterol inhaler because it makes her heart race. She wears a IVAP at bedtime and follows pulmonary about 3 months.
== END 2024-12-08 10:28 | disposition home or self-care (01) ==
PROVIDERS: PCP Family Medicine; Visit Provider Internal Medicine Pulmonary Disease
DX: R91.1 Solitary pulmonary nodule (principal); Z91.89 Other specified personal risk factors, not elsewhere classified; J43.9 Emphysema, unspecified
CPT/HCPCS: 71250

== ENCOUNTER 2025-01-22 12:26 | Outpatient (CLI) | payer OTHER, SELFPAY ==
--- NOTE | ~2025-01-22 | DEXA_ITS ---
Bone Density Report Name: WILFRED ROBERTSON Age: 74 Sex: Female Ethnicity: White Date of : 1950 Indication: postmenopausal osteoporosis; monitoring treatment; hysterectomy; Referring Provider: SELWYN CORRALES Study: Bone densitometry was performed. Exam Date: January 22, 2025 Accession number: [id number] Bone Density: Region BMD T-score Z-score Classification AP Spine(L1-L4) 0.868 -1.6 0.7 Osteopenia Femoral Neck (Left) 0.447 -3.6 -1.7 Osteoporosis Total Hip (Left) 0.585 -2.9 -1.3 Osteoporosis Femoral Neck (Right) 0.485 -3.3 -1.3 Osteoporosis Total Hip (Right) 0.567 -3.1 -1.4 Osteoporosis Total Hip Mean 0.576 -3.0 -1.4 Osteoporosis World Health Organization criteria for BMD impression classify patients as: Normal (T-score at or above -1.0), Osteopenia (T-score between -1.0 and -2.5), or Osteoporosis (T-score at or below -2.5). 10-year Fracture Risk: FRAX not reported because: Some T-score for Spine Total or Hip Total or Femoral Neck at or below -2.5 Treated for osteoporosis Previous Exams: -- Region Exam Age BMD T-score BMD Change BMD Change Date g/cm2 vs Baseline vs Previous -- AP Spine (L1-L4) 01/22/2025 74 0.868 -1.6 7.0%* 7.0%* 07/18/2021 71 0.812 -2.1 Total Hip(Left) 01/22/2025 74 0.585 -2.9 4.4% 4.4% 07/18/2021 71 0.560 -3.1 Total Hip(Right) 01/22/2025 74 0.567 -3.1 4.2% 4.2% 07/18/2021 71 0.544 -3.3 -- *Denotes significance at 95% confidence level, LSC for AP Spine = 0.022 g/cm2, LSC for Total Hip = 0.027 g/cm2 Clinical Information Provided by Patient: Is being treated for osteoporosis Has used the following medications: Fosamax (i.e. alendronate), Vitamin D Has the following medical conditions: Hysterectomy Patient maximum height was 60 Menopause Age: 42 No regular weight bearing exercise Does not regularly consume dairy products Drinks caffeinated beverages Onset of menses at age 13 Number of children 2 Impression: The patient has osteoporosis, based on the Left Femoral Neck T-score. No significant bone loss was observed. Discussion: PATIENT UNDER TREATMENT WITH NO SIGNIFICANT BMD LOSS SINCE LAST EXAM. In an untreated patient, BMD typically declines with age. A lack of decline or gain is usually a sign that treatment is efficacious and fracture risk is reduced. It is important to ask patients whether they are taking their medications and to encourage continued and appropriate compliance with their osteoporosis therapies to reduce fracture risk. It is also important to review their risk factors and encourage appropriate calcium and vitamin D intakes, exercise, fall prevention and other lifestyle measures. Follow-Up: Consider a repeat BMD and Vertebral Fracture Assessment (VFA) exam in 2 years or sooner if medically necessary, to reassess this patient's status. Reported by: VEENA on 01/22/2025 12:46:00 PM. Reviewed, dictated and finalized at location A.
== END 2025-01-22 12:27 | disposition home or self-care (01) ==
LOC: MICIMG 12:28
PROVIDERS: PCP Student in an Organized Health Care Education/Training Program; Visit Provider Student in an Organized Health Care Education/Training Program
DX: M81.0 Age-related osteoporosis without current pathological fracture (principal); Z78.0 Asymptomatic menopausal state
CPT/HCPCS: 77080

== ENCOUNTER 2025-02-02 12:21 | Outpatient (CLI) | payer OTHER, SELFPAY ==
--- OUTSIDE RECORDS SUMMARY | 2025-02-02 12:41 | XMS_ITS ---
Author Name Madina CATES MRS. Carpio npal Address [address] [facility] [place] [address] Phone [phone] Organization [facility] ([facility]) Care Team Providers Care Assistant Manager Airside Operations Name Role Phone Octavia Painter Unavailable [phone] MACEY GAFFNEY Unavailable [phone] Suzi Burton Unavailable [phone] Reason for Referral Not Available Allergies, adverse [...] tive Time Current Smoking Status Former smoker 2025-01-22 2 Sex Female History of Procedures Procedures Service Procedure code Service date Servicing provider Phone# Home visit for evaluation and management of new patient requiring medically appropriate examination and moderate level of medical decision making. If using time, at least 60 minutes [place] on enco [id number] 2024-05-19 No Data Available No Data Availa [...]
--- NOTE | 2025-02-02 14:30 | WPDSIXMINUTE ---
Six Minute Walk Procedure Procedure Performed Pulmonary Stress Test (6 min walk) Six Minute Walk Six Minute Walk: This is a 6 minute walk test. The test was performed and interpreted in accordance with the 2014 ERS/ATS task force guidelines. Of note, the patient used to wheeled walker and 3 L nasal cannula. The patient stopped for 10 seconds to rest at the 3 minute tanner. Findings: The patient's resting 2 L nasal cannula oxygen saturation measured by pulse oximetry was 98%, the heart rate was 89 bpm, and the modified Meaghan dyspnea score was 0. Patient ambulated for 183 meters and oxygen saturation remained 91 to 96%. At the end of the study the heart rate was 126 bpm and the modified Meaghan dyspnea score was 2. The patient did not have resting desaturations on 2 L NC and did not have exertional desaturations on 3 L NC. There are no prior studies for comparison.
--- NOTE | 2025-02-02 14:34 | WPDPFTINT ---
PFT Procedure Performed PFT Procedure Performed Plethysmography (Lung Vol) Diffusing Cap (DLCO) Flow Vol Loop Spirometry w/o Bronchodil PFT Interpretation This is a pulmonary function test with spirometry, plethysmography and diffusing capacity. The test was performed and results interpreted in accordance with the 2019 and 2005 ATS/ERS Task Force guidelines respectively using the Global Lung Function Initiative-2012 reference equations. Patient demonstrated good effort and cooperation. Reproducibility criteria were met. The quality of the spirometry maneuver was Grade A. Of note, the patient refused albuterol inhaler. Findings: Spirometry: There is decreased maximal expiratory airflow at all lung volumes with a concave expiratory flow tracing. The contour the inspiratory flow tracing is normal. The FVC is 1.50 L, 63% predicted. The FEV1 is 0.62 L, 33% predicted. The FEV1: FVC ratio is 41%. Plethysmography: The total lung capacity is 4.19 L, 95% predicted. The functional residual capacity is 3.14 L, 125% predicted. The residual volume is 2.63 L, 130% predicted. The residual volume: Total lung capacity ratio is 63%. Diffusing capacity: The diffusing capacity unadjusted for hemoglobin and carboxyhemoglobin is 4.3, 23% predicted. The diffusing capacity adjusted for alveolar volume is 1.65, 37% predicted. In comparison to previous pulmonary function testing on 03/14/2023 the pre bronchodilator FVC is unchanged from 1.52 L to 1.50 L. The pre bronchodilator FEV1 is unchanged from 0.62 L to 0.62 L. The total lung capacity is unchanged from 4.57 L to 4.19 L. The functional residual capacity is unchanged from 3.45 L to 3.14 L. The residual volume is unchanged from 2.74 L to 2.63 L. The diffusing capacity unadjusted for hemoglobin and carboxyhemoglobin is unchanged from 5.0 to 4.3. The diffusing capacity adjusted for alveolar volume is decreased from 2.29 to 1.65. Impression: There is a very severe obstructive abnormality. The increase in residual volume to total lung volume ratio is consistent with hyperinflation from an obstructive abnormality. The diffusing capacity unadjusted for hemoglobin and carboxyhemoglobin is severely decreased and remains severely decreased when adjusted for alveolar volume. In comparison to previous pulmonary function testing on 03/14/2023, there has been a greater than anticipated time dependent decrease in the diffusing capacity adjusted for alveolar volume with no significant change in the pre bronchodilator FVC, pre bronchodilator FEV1, total lung capacity, functional residual capacity, residual volume or diffusing capacity unadjusted for hemoglobin and carboxyhemoglobin. Clinical correlation is recommended.
== END 2025-02-02 12:22 | disposition home or self-care (01) ==
LOC: ANHPFT 12:22
PROVIDERS: PCP Student in an Organized Health Care Education/Training Program; Visit Provider Internal Medicine Pulmonary Disease
DX: J43.9 Emphysema, unspecified (principal)
CPT/HCPCS: 94375; 94618; 94726; 94729